=== PATIENT | female | born 1995 | race Caucasian/White ===

== ENCOUNTER 2018-04-02 09:00 | Outpatient (RCR) | payer OTHER, BC, SELFPAY ==
--- NOTE | 2018-04-02 10:42 | BH.COMM_ITS ---
Communication Note - Communication with Client Communication Note: Therapist met with client to build rapport and to complete intake paperwork before group. Therapist also followed up with client after group to see how her first day went and to identify individual goals for the program. Client identified her goals as lessening anxiety, no more panic attacks , and stopping the what if thinking and jumping to conclusions.
--- NOTE | 2018-04-02 13:01 | BH.SGPN ---
Service Group Progress Note - Session Psychotherapy Session #2 Date Open:: 04/02/18 Time Started:: 10:20 Time Stopped:: 11:15 Targeted Problem #:: 1 Type of Group:: Illness Management Goal of Group:: To increase understanding of communication and the various types of communication. Another goal was to increase understanding of impact communication styles can have. Client Response/Progress/Benefit:: Pt passive participant, appeared to listen attentively to others; contributed if elicited by therapist. Pt appeared to connect with the different styles of communication as evidenced by pt nodding head in agreement to others comments. Pt identified she most often is a passive communicator. Pt shared by being passive she doesn't express her emotions which she identified doesn't help her in the terminal carman. Pt seemed to benefit from learning about the different communication styles as well as increasing awareness of how her style of communication could be negatively impacting her. Eye Contact:: Fair Motor Activity:: Appropriate Appearance:: Casual Speech:: Appropriate Mood:: Anxious, Depressed Affect:: Constricted Thoughts:: Linear, Logical, No evidence of hallucinations/delusions noted Staff Interventions:: Therapist facilitated the group discussion about communication and explained the different types of communication. Therapist assisted group members in connecting the communication styles to the way they communicate and impact the communication style has on their relationships. Therapist provided support by using active listening and providing feedback. Psychotherapy Session #3 Date Open:: 04/02/18 Time Started:: 11:25 Time Stopped:: 12:15 Targeted Problem #:: 1 Type of Group:: Functional Skills Development Goal of Group:: To identify important components of communication and practice specific, clear communication. Client Response/Progress/Benefit:: Pt remained quiet during group discussion, did show increased engagement during challenge activity. When processing activity pt identified it was unhelpful to the group when one partner wasn't allowed to ask questions because misinterpretations occurred which led to group not being successful. Pt able to connect that when don't clarify during a conversation things can easily turn out worker negatively because assumptions will often occur. Pt seemed to benefit from pt connecting importance of communicating assertively, specific and clearly to others. Eye Contact:: Fair Motor Activity:: Appropriate Appearance:: Casual Speech:: Appropriate Mood:: Anxious, Depressed Affect:: Constricted Thoughts:: Linear, No evidence of hallucinations/delusions noted Staff Interventions:: Therapist led the discussion about important components of effective communication. Therapist provided each group member with the same three materials and broke the group into pairs. Therapist facilitated a communication activity in which the group members would have to achieve a goal by using effective communication to achieve such goal. Therapist processed the activity with the group.
--- NOTE | 2018-04-02 13:58 | BH.SGPN_ITS ---
Service Group Progress Note - Session Psychotherapy Session #1 Date Open:: 04/02/18 Time Started:: 09:17 Time Stopped:: 10:07 Targeted Problem #:: 1 Type of Group:: Process - 4 participants Goal of Group:: The goal of group was to check-in on client?s mood, stressors and positives, review homework and introduce the topic of the day. Client Response/Progress/Benefit:: Client first day in IOP program and was adjusting to the treatment environment. She did well to remain attentive and engaged while fellow participants processed with the group. This was evidenced by client maintaining eye contact and nodding throughout. Client was willing to briefly share with the group but expressed being nervous about the group setting. Client explained that while in the program she would like to work on developing the skills she can use to manage symptoms of anxiety and prevent panic escalation. CLient benefitted form the support and encouragement of the group environment as well as being reassured that she is taking an important first step in improving overall mental health and wellness by seeking treatment. Client recommended continue IOP treatment to maintain stability and increase amount of healthy coping skills client utilizes to decrease sx of anxiety. Eye Contact:: Good Motor Activity:: Restless Appearance:: Casual Speech:: Appropriate, Soft Mood:: Anxious, Dysthymic Affect:: Constricted Thoughts:: Linear, Logical, No evidence of hallucinations/delusions noted Staff Interventions:: Therapist used open-ended questions to elicit information about client's current stressors and mood state. Therapist was supportive by using active listening and reflection. Therapist utilized a quote related to confidence as an aid in introducing the topic of the day and facilitated discussion of quote.
--- NOTE | 2018-04-02 16:24 | BH.MTP_ITS ---
[facility] Treatment Plan - Patient Information Program Physician:: Garima Encinas Primary Therapist:: Ambar Lara - Psychiatric Diagnoses Psychiatric Diagnoses:: Generalized anxiety disorder; Depressive disorder unspecified. Diagnosis Code(s):: F 41.1 - Estimated LOS Estimated LOS (in weeks):: 6 Problem/Goal #1 - Problem/Goal #1 Stated Goal:: Client will reduce depressive symptoms, self-judging, and suicidal ideation through the Intensive Outpatient Program. Description of Barriers: Client reports few mental health supports outside of her boyfriend and best friend. Client shared her family does not understand mental health and is constantly negative. Client is currently unemployed and reports pressure from her family to get a job which contributes to client's self -judging and low self-esteem. Client is aware that she is a people pleaser and has a hard time setting boundaries. Client shared she also struggles with communicating her mental health needs and reports expecting others to know how to help her without client telling them which has been a barrier in the past. Client reports avoidance behaviors and fear of failure that have also kept client stuck in the past. Functional Impact: At admission, client reports a long-standing history of anxiety since childhood. Client?s symptoms became worse in January associated with academic stress and a suicide on campus. Client endorses depressed mood with negative self-judging, anhedonia, and passive thoughts of suicide. Client also endorses ruminative anxiety about multiple issues including academic performance and about upsetting others. She acknowledges that she is a people pleaser and has a hard time setting boundaries. Client shared she has panic attacks once per week lasting about a half hour in which she has heart palpitations and shortness of breath. Client has some mild obsessive- compulsive traits including counting and perfectionism. Client reports her symptoms are impacting her ability to function at her baseline as client has increased avoidance behaviors, negative thinking, and ruminating that prevents client from working. Client reports belief her symptoms have also impacted her relationships with family and negatively impacted her schooling. Goal Relevant Strengths/Supports: Client is intelligent, kind, and organized. Client identifies herself as a life-long learner which may help client increase awareness of triggers, warning signs, and mental health symptoms. Client appears to be motivated in her treatment and is willing to apply coping skills into her daily life. Client reports being active in local politics and share he loves school. Client identified her boyfriend and her best friend as positive mental health supports. - Objectives Objective #1 Stated Objective: Client will identify at least 2-3 negative self-talk messages used to reinforce negative core beliefs and self-judging and replace thoughts with positive messages. Interventions: Therapist will help client identify distorted, negative beliefs about self and replace with more realistic, affirmative messages. Therapist will utilize CBT to help client increase understanding the development of core beliefs and how to challenge negative thoughts. Therapist will helped client practice more effective internal and external communication to increase confidence. Discharge Criteria: Client will have achieved this goal when can verbalize at least 2 negative self-talk messages and effectively replace those thoughts with affirmative messages. Target Date: 05/14/18 Review Date: 05/02/18 Status: open Objective #2 Stated Objective: Client will identify at least 2 triggers to increased depressive thinking and urge to self-harm, as well as 2 coping skills to use to help avoid self-harm and increase emotional regulation. Interventions: Therapist will help client identify triggers for depressive symptoms and urges to self-harm. Therapist will teach client alternative, healthy coping skills to reduce self-harm and promote emotional regulation. Discharge Criteria: Client will have met this goal when can report better insight into mood changes utilizing healthy coping skills to reduce self-harm and suicidal ideation. Target Date: 05/14/18 Review Date: 05/02/18 Status: open Problem/Goal #2 - Problem/Goal #2 Stated Goal:: Client will reduce duration, intensity, and frequency of panic and decrease ruminative thoughts on a daily basis through Intensive Outpatient Program. Description of Barriers: Client reports few mental health supports outside of her boyfriend and best friend. Client shared her family does not understand mental health and is constantly negative. Client is currently unemployed and reports pressure from her family to get a job which contributes to client's self -judging and low self-esteem. Client is aware that she is a people pleaser and has a hard time setting boundaries. Client shared she also struggles with communicating her mental health needs and reports expecting others to know how to help her without client telling them which has been a barrier in the past. Client reports avoidance behaviors and fear of failure that have also kept client stuck in the past. Functional Impact: At admission, client reports a long-standing history of anxiety since childhood. Client?s symptoms became worse in January associated with academic stress and a suicide on campus. Client endorses depressed mood with negative self-judging, anhedonia, and passive thoughts of suicide. Client also endorses ruminative anxiety about multiple issues including academic performance and about upsetting others. She acknowledges that she is a people pleaser and has a hard time setting boundaries. Client shared she has panic attacks once per week lasting about a half hour in which she has heart palpitations and shortness of breath. Client has some mild obsessive- compulsive traits including counting and perfectionism. Client reports her symptoms are impacting her ability to function at her baseline as client has increased avoidance behaviors, negative thinking, and ruminating that prevents client from working. Client reports belief her symptoms have also impacted her relationships with family and negatively impacted her schooling. Goal Relevant Strengths/Supports: Client is intelligent, kind, and organized. Client identifies herself as a life-long learner which may help client increase awareness of triggers, warning signs, and mental health symptoms. Client appears to be motivated in her treatment and is willing to apply coping skills into her daily life. Client reports being active in local [employer] and share he loves school. Client identified her boyfriend and her best friend as positive mental health supports. - Objectives Objective #1 Stated Objective: Client will identify 2-3 panic triggers and 2 coping skills to use when feeling anxious. Interventions: Therapist will help client process triggers to increased symptoms , and then identify ways to manage these feelings and thoughts. Therapist will help client establish an anxiety ladder of small exposure goals to improve confidence and reduce avoidance behaviors that exacerbate anxiety. Therapist will provide psychoeducation on anxiety to increase client's awareness. Discharge Criteria: Client will have accomplished this goal when can identify 2- 3 triggers and report reduced panic symptoms through use of at least two coping skills. Target Date: 05/14/18 Review Date: 05/02/18 Status: open Objective #2 Stated Objective: Client will identify 2-3 anxiety producing thoughts that tends to ruminate on, and reduce this by increasing self-awareness, communication, and problem solving. Interventions: Therapist will help client identify internal struggles client faces, including anxiety around setting boundaries, unrealistic expectations, other identified stressors. Therapist will encourage client to use self- awareness strategies and assertive communication of needs to set boundaries and improve self-esteem. Therapist will utilize CBT and DBT strategies to help client more effectively challenge and reframe thoughts, while improving distress tolerance. Discharge Criteria: Client will have achieved this objective when able to verbalize anxiety-producing thoughts and identify 2-3 ways to cope with them. Target Date: 05/14/18 Review Date: 05/02/18 Status: open
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
--- NOTE | 2018-04-03 16:09 | BH.SGPN_ITS ---
Service Group Progress Note - Session Psychotherapy Session #2 Date Open:: 04/02/18 Time Started:: 10:20 Time Stopped:: 11:15 Targeted Problem #:: 1 Type of Group:: Illness Management Goal of Group:: To increase understanding of communication and the various types of communication. Another goal was to increase understanding of impact communication styles can have. Client Response/Progress/Benefit:: Pt passive participant, appeared to listen attentively to others; contributed if elicited by therapist. Pt appeared to connect with the different styles of communication as evidenced by pt nodding head in agreement to others comments. Pt identified she most often is a passive communicator. 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 Pt seemed to benefit from learning about the different communication styles as well as increasing awareness of how her style of communication could be negatively impacting her. Eye Contact:: Fair Motor Activity:: Appropriate Appearance:: Casual Speech:: Appropriate Mood:: Anxious, Depressed Affect:: Constricted Thoughts:: Linear, Logical, No evidence of hallucinations/delusions noted Staff Interventions:: Therapist facilitated the group discussion about communication and explained the different types of communication. Therapist assisted group members in connecting the communication styles to the way they communicate and impact the communication style has on their relationships. Therapist provided support by using active listening and providing feedback. Psychotherapy Session #3 Date Open:: 04/02/18 Time Started:: 11:25 Time Stopped:: 12:15 Targeted Problem #:: 1 Type of Group:: Functional Skills Development Goal of Group:: To identify important components of communication and practice specific, clear communication. Client Response/Progress/Benefit:: Pt remained quiet during group discussion, did show increased engagement during challenge activity. When processing activity pt identified it was unhelpful to the group when one partner wasn't allowed to ask questions because misinterpretations occurred which led to group not being successful. Pt able to connect that when don't clarify during a conversation things can easily t rail turner negatively because assumptions will often occur. Pt seemed to benefit from pt connecting importance of communicating assertively, specific and clearly to others. Eye Contact:: Fair Motor Activity:: Appropriate Appearance:: Casual Speech:: Appropriate Mood:: Anxious, Depressed Affect:: Constricted Thoughts:: Linear, No evidence of hallucinations/delusions noted Staff Interventions:: Therapist led the discussion about important components of effective communication. Therapist provided each group member with the same three materials and broke the group into pairs. Therapist facilitated a communication activity in which the group members would have to achieve a goal by using effective communication to achieve such goal. Therapist processed the activity with the group.
--- NOTE | 2018-04-04 11:01 | BH.MDN_ITS ---
Multi-Disciplinary Note - Note 45-min Individual Time Started:: 10:04 Date: 04/04/18 Purpose of session/treatment goals addressed:: The purpose of this session was to build rapport, establish treatment goals, and explore client's current symptoms, stressors, supports, and mental health history. Eye Contact:: Fair Motor Activity:: Restless Speech:: Rambling Mood:: Anxious Affect:: Full Thoughts:: Circular, No evidence of hallucinations/delusions noted Staff Interventions:: Therapist used active listening and open-ended questions to gather information on client's current symptoms, stressors, supports, and mental health history. Therapist gave client a safe environment to verbalize her anxiety and process precipitating factors that have contributed to her current symptoms. Therapist helped client establish treatment goals and identify strengths. Client Response:: Client responded well to session, open to meeting with therapist. Client reported she has been experiencing anxiety for most of her life sharing she has been in therapy one and off since 2nd grade. However, this past semester client's anxiety has worsened due to two suicides on the [facility] campus where client attends school. Client reported having a severe panic attack on Mother's Day this year which client described as I wanted to ... I was sobbing and couldn't breathe. Client reported her boyfriend, school, work , and mother contribute the most to her anxiety. Client shared her symptoms include rapid heartrate, racing thoughts, hopelessness, passive thoughts of , and irritability. Client expressed her symptoms have impacted her grades in school, social life, and prevent her from doing things she enjoys. Client reported a history of self-harming behaviors when experiencing panic attacks such as slapping herself and scratching. Client shared she tried cutting herself in high school, but denies currently engaging in this self-harming behavior. Client reports ability to maintain safety and denies using drugs and alcohol. Client stated her boyfriend and best friend provide the most support for her mental health, but client would like to bring her boyfriend in so he can better understand how to help her. Client identified her treatment goals as reducing anxiety, panic, and racing thoughts. Risks/Concerns:: Client reports passive thoughts of as recent as last night. Client denies SI plan and intent. Client reports looking forward to working on a [employer] which demonstrates future orientation. Client reports ability to maintain safety and is aware of local crisis resources should she feel unable to maintain safety. Progress Toward Goals/Plan:: Limited progress as it is client's first week in IOP. Client reports motivation to improve her functioning and management of anxiety. Client shared anxiety impacts her all areas of her life and prevents client for doing things she enjoys. Client would like to learn how to more effectively cope with panic, negative thoughts, and anxiety. Client to continue IOP to prevent decompensation, reduce anxiety, and promote mood stability. Time Stopped:: 10:55
--- NOTE | 2018-04-05 10:01 | BH.NA ---
Physical Data - Vital Signs Pulse Rate: 66 Respiratory Rate: 14 Blood Pressure: 96/71 - Height/Weight Height: 1.68 m Weight:: 101.151 kg Weight in Pounds: 223.0 lbs Current Medication Compliance - Medication Compliance Do you take your medication as prescribed?: Yes Do you need assistance with taking medication?: No Have you had side effects from medication?: No Nutritional History - Appetite Nutritional Instructions:: If client shows signs of a swallowing problem, weight change of 10 pounds or more in the last month, or is on a diabetic diet, the physician will review and request a dietitian consult, as appropriate. All unintentional weight loss will be referred to the physician for decision on need for dietitian consult. Describe your appetite:: Good Have you noticed a change in your eating habits lately?: No Additional nutritional information:: Rare caffiene ingestion Functional Assessment - Sleep Pattern Describe any problems with sleeping: Lenore endorses difficulty falling asleep most nights associated with rumination. - Activities Motor Activity:: Functional Sensory/Communication Assess - Hearing Problems Do you have any hearing problems?: Adequate - Communication Problems Do you have difficulty understanding what people are saying?: No Do you have trouble putting your thoughts into words or expressing what you want to say?: No Do people ever have trouble understanding what you say?: No What is your primary language?: Kyrgyz Learning Assessment - Education What is your level of education?: Some College - Learning Barriers Learning Barriers:: Ready to learn Medical Problems/History - Neurological Conditions Neurological: Other (See comments) - fibromyalgia - Pain Assessment Do you have acute or chronic pain?: Yes - Female Reproductive Do you think you may be ?: No Number of children:: 0 Have you reached menopause?: No Do you have any history of breast disease?: No Substance Abuse - Substance Abuse Please describe substance abuse in the last 30 days:: Client denies tobacco and illicit substance use. She occassionally drinks alcohol. Mental Status Summary - Mental Status Significant Findings/Observations on Appearance and Mood:: Alert and oriented, cooperative with interview, and makes fair eye contact. Very hyperactive in chair with picking of arms and bouncing of feet/legs. Speech is clear and of regular rate and volume. Moderate anxiety and anhedonia. Mood congruent affect. Logical associations. Fair knowledge and insight. No symptoms of delusions. Denies hallucinations and HI. She does have fleeting SI without plan or intent. Good concentration and attention. Suicide Assessment - Suicidal Ideation Are you currently or have you been suicidal in the past?: Yes Suicidal Intentional Rating Scale (SIRS): Current suicidal thoughts/No plan/Contracts for safety Physician Notification: If Active suicidal thoughts/Will not contract for safety is checked, contact physician and document in the Physician Notification section below. Past Psychiatric History - MH Treatment Hx Past Psychiatric Medications:: fluoxetine Age of first mental health symptoms: 10-years-old/2nd grade Describe (age, circumstance, etc) any past hospitalizations: N/A Fall Risk Assessment - Age Age: Less than 60 - Mental Status Mental Status: Willing & able to ask for assistance when needed - Physical Status Physical Status: No problems - Impairments Impairments: None - Elimination Elimination: Continent AND independent - Gait or Balance Gait or Balance: Walks independently - Hx of Falls History of falls in the past 6 months: No known history - Medications/Substances Psychotropics:: Antidepressants, Anxiolytics (e.g. benzodiazepines) Medications/substances used within the past 24 hours or ordered to administer: 1-2 of the medications/substances listed above - Total Score Total Points:: 1 RN Summary of Impressions - Impressions Recommendations: Include psychiatric and medical issues, treatment planning recommendations, and discharge planning needs. Impressions: Psychiatric Issues: MDD, anxiety, borderline personality d/o? (evidence of cluster B traits) Impression: General Medical Conditions: fibromyalgia - Level of Care How do the client's current symptoms and functional deficits support need for this level of care?: Lenore endorses negative mental health symptoms that are adversely impacting her life since January of 2018. She has been engaging in self-harm by way of cutting, having intermittent fleeting SI, and frequent panic attacks over the same period. 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 She feels intense pressure from her family to perform well in school and has had some disagreements about what she should be doing this summer break (working vs. volunteering for political campaign). [facility] will help Lenore engage socially and provide opportunities to learn and implement skills to decrease her anxiety.
--- NOTE | 2018-04-05 13:13 | PCM.HP.BLA ---
History and Physical Identifying information Patient is a 22 year old single female who presents to the [facility] with chief complaint of anxiety. History is been obtained per interview with patient discussion with staff review of chart. Case discussed with treatment team. History of present illness Patient is a 22-year-old single female referred by primary care physician Dr. Ortega to the [facility] due to recent exacerbation of anxiety and depression. Patient reports a long-standing history of anxiety since childhood. Her symptoms became worse in January associated with academic stress of semester midterms. 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 She endorses depressed mood with negative self judging, anhedonia, and passive thoughts of suicide. She denies suicide plan or intent. She has thoughts however to end the suffering occurring twice per week since January. She denies access to firearms or stock piles of medications. She denies homicidal thoughts or symptoms consistent with psychosis. She denies symptoms consistent with jeanna. She endorses ruminative anxiety about multiple issues including academic performance and about upsetting others. She acknowledges that she is a people pleaser. She has panic attacks once per week lasting about a half hour in which she has heart palpitations and shortness of breath. They are triggered by rumination and relieved by talking to someone. She has some mild obsessive-compulsive traits including counting and perfectionism. Her appetite is been normal. She denies history of eating disorder. She is sleeping from 11 PM to 8 AM. She denies history of abuse or symptoms consistent with PTSD. Past psychiatric history Patient received counseling for anxiety while in elementary school. She denies previous psychiatric hospitalizations or suicide attempts. Last year her primary care physician Dr. Ortega prescribed Prozac which she took for 6 months and then ultimately changed to Cymbalta in October 2017. She feels the medication is been helpful. She does not currently have a psychiatrist or counselor. Substance use history Patient denies smoking cigarettes he consumes 3 alcoholic drinks once per month. He denies use of illicit drugs or ingestion of caffeine. Past medical history Significant for fibromyalgia Vitamin D deficiency Denies history of seizure or head injury. Review of systems No fevers chills nausea vomiting chest pain dyspnea. All other systems reviewed and negative except as above. Allergies-no known medical allergies Current medications Cymbalta 30 mg p.o. twice daily (increased to twice daily last week from 30 mg daily) Meloxicam Vitamin D3 Family medical psychiatric history Mother-anxiety depression Maternal grandmother-anxiety depression Paternal grandfather-anxiety Maternal uncle-anxiety Maternal [facility] in the 50s Father-ADHD Developmental social history Born and raised in [place]. Only child. Father left mother prior to patient's . 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 No abuse. Describes childhood as good. 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 Resided in the dorms last year. Planning to live in an apartment next year. On summer break. Staying with mother and Jenna and sometimes with boyfriend in [place]. Boyfriend (Ryan) since May 2017. Ryan graduated [employer] last week in [employer] science and is planning to teach. Mental status exam Vital signs reviewed per nursing database and discussed with nursing. Alert and oriented. No acute distress. Ambulatory with normal gait and station. Casually dressed and groomed. Appropriate hygiene. Cooperative with interview. Good eye contact. No psychomotor agitation or retardation. Mood depressed. Affect congruent. Speech is clear and of regular rate and volume. Language fluent. Thought process organized. Associations logical. Thought content significant for ruminative anxiety and themes of depression. Passive suicidal ideation. No suicide plan or intent. Feels able to maintain safety. No homicidal ideation related to her detected. No evidence of psychosis related to her detected. Immediate recent and remote memory grossly intact. Attention and concentration are fair. Estimated intelligence fund of knowledge average. Judgment and insight are limited to fair. Labs and testing lab work will be requested from primary care physician. Further lab work will be obtained as needed Diagnosis Generalized anxiety disorder F 41.1 Depressive disorder unspecified. Vitamin D deficiency Fibromyalgia Plan Admit to IOP as the structured setting is necessary to prevent decompensation. Risks benefits alternatives of medications discussed with patient. Patient acknowledges understanding. Continue to Cymbalta. Consolidate dose to 60 mg p.o. every morning. Dispense #30 with 1 refill. Continue vitamin D supplement. Establish with outpatient psychiatric providers for when IOP complete. Patient acknowledges understanding and is in agreement with plan. Feels able to maintain safety. Agrees to seek help or emergency care if feeling unsafe to self or others.
--- NOTE | 2018-04-05 13:29 | HP.PCM_ITS ---
History and Physical Identifying information Patient is a 22 year old single female who presents to the [facility] with chief complaint of anxiety. History is been obtained per interview with patient discussion with staff review of chart. Case discussed with treatment team. History of present illness Patient is a 22-year-old single female referred by primary care physician Dr. Ortega to the [facility] due to recent exacerbation of anxiety and depression. Patient reports a long-standing history of anxiety since childhood. Her symptoms became worse in January associated with academic stress of semester midterms. 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 She endorses depressed mood with negative self judging, anhedonia, and passive thoughts of suicide. She denies suicide plan or intent. She has thoughts however to end the suffering occurring twice per week since January. She denies access to firearms or stock piles of medications. She denies homicidal thoughts or symptoms consistent with psychosis. She denies symptoms consistent with jeanna. She endorses ruminative anxiety about multiple issues including academic performance and about upsetting others. She acknowledges that she is a people pleaser. She has panic attacks once per week lasting about a half hour in which she has heart palpitations and shortness of breath. They are triggered by rumination and relieved by talking to someone. She has some mild obsessive-compulsive traits including counting and perfectionism. Her appetite is been normal. She denies history of eating disorder. She is sleeping from 11 PM to 8 AM. She denies history of abuse or symptoms consistent with PTSD. Past psychiatric history Patient received counseling for anxiety while in elementary school. She denies previous psychiatric hospitalizations or suicide attempts. Last year her primary care physician Dr. Ortega prescribed Prozac which she took for 6 months and then ultimately changed to Cymbalta in October 2017. She feels the medication is been helpful. She does not currently have a psychiatrist or counselor. Substance use history Patient denies smoking cigarettes he consumes 3 alcoholic drinks once per month. He denies use of illicit drugs or ingestion of caffeine. Past medical history Significant for fibromyalgia Vitamin D deficiency Denies history of seizure or head injury. Review of systems No fevers chills nausea vomiting chest pain dyspnea. All other systems reviewed and negative except as above. Allergies-no known medical allergies Current medications Cymbalta 30 mg p.o. twice daily (increased to twice daily last week from 30 mg daily) Meloxicam Vitamin D3 Family medical psychiatric history Mother-anxiety depression Maternal grandmother-anxiety depression Paternal grandfather-anxiety Maternal uncle-anxiety Maternal [facility] in the 50s Father-ADHD Developmental social history Born and raised in [place]. Only child. Father left mother prior to patient' s . 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 No abuse. Describes childhood as good. 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 Resided in the dorms last year. Planning to live in an apartment next year. On summer break. Staying with mother and Jenna and sometimes with boyfriend in [place]. Boyfriend (Ryan) since May 2017. Ryan graduated [employer] last week in [email or web address] science and is planning to teach. Mental status exam Vital signs reviewed per nursing database and discussed with nursing. Alert and oriented. No acute distress. Ambulatory with normal gait and station. Casually dressed and groomed. Appropriate hygiene. Cooperative with interview. Good eye contact. No psychomotor agitation or retardation. Mood depressed. Affect congruent. Speech is clear and of regular rate and volume. Language fluent. Thought process organized. Associations logical. Thought content significant for ruminative anxiety and themes of depression. Passive suicidal ideation. No suicide plan or intent. Feels able to maintain safety. No homicidal ideation related to her detected. No evidence of psychosis related to her detected. Immediate recent and remote memory grossly intact. Attention and concentration are fair. Estimated intelligence fund of knowledge average. Judgment and insight are limited to fair. Labs and testing lab work will be requested from primary care physician. Further lab work will be obtained as needed Diagnosis Generalized anxiety disorder F 41.1 Depressive disorder unspecified. Vitamin D deficiency Fibromyalgia Plan Admit to IOP as the structured setting is necessary to prevent decompensation. Risks benefits alternatives of medications discussed with patient. Patient acknowledges understanding. Continue to Cymbalta. Consolidate dose to 60 mg p.o. every morning. Dispense #30 with 1 refill. Continue vitamin D supplement. Establish with outpatient psychiatric providers for when IOP complete. Patient acknowledges understanding and is in agreement with plan. Feels able to maintain safety. Agrees to seek help or emergency care if feeling unsafe to self or others.
--- NOTE | 2018-04-05 13:30 | BH.DR.ITP ---
Initial Treatment Plan - Patient Information Visit Information: ADMISSION DATE: EXPECTED LOS: 4-6 weeks Diagnoses:: Analyzed anxiety disorder - Problems/Symptoms Problem #1:: depression Symptom:: Sad mood, negative self judging, suicidal ideation Problem #2:: Anxiety Symptom:: Rumination, panic
--- NOTE | 2018-04-05 15:34 | BH.NA_ITS ---
Physical Data - Vital Signs Pulse Rate: 66 Respiratory Rate: 14 Blood Pressure: 96/71 - Height/Weight Height: 1.68 m Weight:: 101.151 kg Weight in Pounds: 223.0 lbs Current Medication Compliance - Medication Compliance Do you take your medication as prescribed?: Yes Do you need assistance with taking medication?: No Have you had side effects from medication?: No Nutritional History - Appetite Nutritional Instructions:: If client shows signs of a swallowing problem, weight change of 10 pounds or more in the last month, or is on a diabetic diet, the physician will review and request a dietitian consult, as appropriate. All unintentional weight loss will be referred to the physician for decision on need for dietitian consult. Describe your appetite:: Good Have you noticed a change in your eating habits lately?: No Additional nutritional information:: Rare caffiene ingestion Functional Assessment - Sleep Pattern Describe any problems with sleeping: Lenore endorses difficulty falling asleep most nights associated with rumination. - Activities Motor Activity:: Functional Sensory/Communication Assess - Hearing Problems Do you have any hearing problems?: Adequate - Communication Problems Do you have difficulty understanding what people are saying?: No Do you have trouble putting your thoughts into words or expressing what you want to say?: No Do people ever have trouble understanding what you say?: No What is your primary language?: Irish Learning Assessment - Education What is your level of education?: Some College - Learning Barriers Learning Barriers:: Ready to learn Medical Problems/History - Neurological Conditions Neurological: Other (See comments) - fibromyalgia - Pain Assessment Do you have acute or chronic pain?: Yes - Female Reproductive Do you think you may be ?: No Number of children:: 0 Have you reached menopause?: No Do you have any history of breast disease?: No Substance Abuse - Substance Abuse Please describe substance abuse in the last 30 days:: Client denies tobacco and illicit substance use. She occassionally drinks alcohol. Mental Status Summary - Mental Status Significant Findings/Observations on Appearance and Mood:: Alert and oriented, cooperative with interview, and makes fair eye contact. Very hyperactive in chair with picking of arms and bouncing of feet/legs. Speech is clear and of regular rate and volume. Moderate anxiety and anhedonia. Mood congruent affect. Logical associations. Fair knowledge and insight. No symptoms of delusions. Denies hallucinations and HI. She does have fleeting SI without plan or intent. Good concentration and attention. Suicide Assessment - Suicidal Ideation Are you currently or have you been suicidal in the past?: Yes Suicidal Intentional Rating Scale (SIRS): Current suicidal thoughts/No plan/ Contracts for safety Physician Notification: If Active suicidal thoughts/Will not contract for safety is checked, contact physician and document in the Physician Notification section below. Past Psychiatric History - MH Treatment Hx Past Psychiatric Medications:: fluoxetine Age of first mental health symptoms: 10-years-old/2nd grade Describe (age, circumstance, etc) any past hospitalizations: N/A Fall Risk Assessment - Age Age: Less than 60 - Mental Status Mental Status: Willing & able to ask for assistance when needed - Physical Status Physical Status: No problems - Impairments Impairments: None - Elimination Elimination: Continent AND independent - Gait or Balance Gait or Balance: Walks independently - Hx of Falls History of falls in the past 6 months: No known history - Medications/Substances Psychotropics:: Antidepressants, Anxiolytics (e.g. benzodiazepines) Medications/substances used within the past 24 hours or ordered to administer: 1 -2 of the medications/substances listed above - Total Score Total Points:: 1 RN Summary of Impressions - Impressions Recommendations: Include psychiatric and medical issues, treatment planning recommendations, and discharge planning needs. Impressions: Psychiatric Issues: MDD, anxiety, borderline personality d/o? ( evidence of cluster B traits) Impression: General Medical Conditions: fibromyalgia - Level of Care How do the client's current symptoms and functional deficits support need for this level of care?: Lenore endorses negative mental health symptoms that are adversely impacting her life since January of 2018. She has been engaging in self -harm by way of cutting, having intermittent fleeting SI, and frequent panic attacks over the same period. 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 She feels intense pressure from her family to perform well in school and has had some disagreements about what she should be doing this summer break (working vs. volunteering for political campaign). [facility] will help Lenore engage socially and provide opportunities to learn and implement skills to decrease her anxiety.
--- NOTE | 2018-04-10 14:33 | BH.SGPN ---
Service Group Progress Note - Session Psychotherapy Session #2 Date Open:: 04/10/18 - 10 group members Time Started:: 10:20 Time Stopped:: 11:15 Targeted Problem #:: 1 Type of Group:: Illness Management Goal of Group:: To increase understanding of resilience and identify the factors that contribute to building resilience. Client Response/Progress/Benefit:: Client responded well to session, providing good insight to discusion. Client connected with the quote stating, it's best to be adaptable so you can grow and change. Client reported resilience is one's ability to adapt and grow from adversity. Client reported belief one can learn to be resilient, even though it can be more challenging for some based on life experience. Client helped the group identify factors that build resilience such as self-awareness and living to learn. Client appeared to benefit from increasing awareness of resilience and how it impacts mental health. Progress noted per client's report of generalizing coping skills, but can continue to benefit from reducing anxiety and panic. Eye Contact:: Fair Motor Activity:: Appropriate Appearance:: Neat Speech:: Appropriate Mood:: Anxious Affect:: Flat Thoughts:: Linear, Logical, No evidence of hallucinations/delusions noted Staff Interventions:: Therapist led group in an activity that would induce a chaotic environment and used the activity as a tool in discussing the various stressors people are faced with each day. Therapist facilitated group discussion about resilience and explained the factors of building resilience. Therapist led discussion about factors that contribute to resilience. Therapist provided support by using active listening and providing feedback. Psychotherapy Session #3 Date Open:: 04/10/18 - 9 group members Time Started:: 11:25 Time Stopped:: 12:15 Targeted Problem #:: 1 Type of Group:: Functional Skills Development Goal of Group:: To rehearse resilient factors and identify ways to maintain resilience despite hardships and stressors. Client Response/Progress/Benefit:: Client responded well to session, active participate. Client identified personal resilience traits such as life-long learner, being open-minded, optimistic, and adaptable. Client shared writing these down will help client remember how she can maintain resilience even when challenges and setbacks occur. Client appeared to benefit from increasing awareness of her personal resilience traits. Progress noted in client's increased insight to warning signs, but can continue to improve with reducing avoidance and improving communication. Eye Contact:: Good Motor Activity:: Appropriate Appearance:: Neat Speech:: Appropriate Mood:: Anxious Affect:: Flat Thoughts:: Linear, Logical, No evidence of hallucinations/delusions noted Staff Interventions:: Therapist led group in an activity in which group members were challenged to stay resilient despite various stressors and hardships added to activity. Therapist provided each group member with a stress ball and used stress ball as a tool to discuss factors of resilient personality. Therapist provided group members with a handout about the building blocks of resilience. Therapist provided support by using reflective listening.
--- NOTE | 2018-04-10 15:42 | BH.SGPN ---
Service Group Progress Note - Session Psychotherapy Session #1 Date Open:: 04/10/18 Time Started:: 09:10 Time Stopped:: 10:10 Targeted Problem #:: 1 Type of Group:: Process - 10 group members Goal of Group:: The goal of today's group was to check-in with client's mood, stressors, and positives, review homework and introduce topic for the day. Client Response/Progress/Benefit:: Client reported yesterday was not good. client elaborated that she went to buy a mattress with her mom at a [employer] store and felt like her mom was being unsupportive. client shared the shopping experience led to continued arguing and fighting with her mom, which client reported increased her anxiety. client reported she just left her parents house and went to her boyfriends because she couldn't deal with the conflict. Client reported she wants to go to her house today to swim, but is anxious because doesn't want to see her mom and get into another disagreement. Client recognizes when there is conflict her first response is to avoid. Client reproted she has difficult time dealing with a conflict becuase becomes too anxious for fear of what might happen. Client seemed to benefit from expressing thoughts and feelings. Client to continue IOP level of care to prevent decompensation and stablize moods. Eye Contact:: Fair Motor Activity:: Restless Appearance:: Casual Speech:: Appropriate Mood:: Anxious, Irritable, Depressed Affect:: Constricted Thoughts:: Linear, No evidence of hallucinations/delusions noted Staff Interventions:: Therapist used open-ended questions to elicit information about client's current stressors and mood state. Therapist was supportive by using active listening and reflection.
--- NOTE | 2018-04-11 10:39 | BH.SGPN ---
Service Group Progress Note - Session Psychotherapy Session #1 Date Open:: 18 - 6 group members Time Started:: 09:05 Time Stopped:: 10:20 Targeted Problem #:: 1 Type of Group:: Process Goal of Group:: The goal of today's group was to check-in with client's mood, stressors, and positives, and introduce topic for the day. Client Response/Progress/Benefit:: Client responded well to session, participating when prompted and receptive to peers comments. Client reports feeling anxious today as she feels overwhelmed with all the things she must do as well as her family pressuring her to get a job. Client shared I know I can't have a job until I get my mind right as currently client's anxiety impacts her performance. The group provided supportive statements to client which appeared to be a benefit to client. Client stated she has been trying to challenge her anxious thoughts, but struggles with rumination and personalization. Client reported her boyfriend became upset this morning when he was late for a training and took it out on client. Client shared although it is still weighing on her she has been reminding herself it wasn't my fault. Client appeared to benefit from challenging negative thoughts in group. Progress noted as client has been implementing healthy coping skills, but can continue to benefit from utilizing stress management techniques. Eye Contact:: Good Motor Activity:: Restless - AEB shaking leg Appearance:: Casual Speech:: Appropriate, Other - monotone Mood:: Anxious Affect:: Flat Thoughts:: Linear, Logical, No evidence of hallucinations/delusions noted Staff Interventions:: Therapist used open-ended questions to elicit information about client's current stressors and mood state. Therapist was supportive by using active listening and reflection.
--- NOTE | 2018-04-11 14:10 | BH.MDN ---
Multi-Disciplinary Note - Note 45-min Individual Time Started:: 12:22 Date: 04/11/18 Purpose of session/treatment goals addressed:: The purpose of this session was to address client's current stressors, relationships, and symptoms. Another goal was to process emotions, practice communication, and challenge negative thoughts. Eye Contact:: Fair Motor Activity:: Restless Appearance:: Casual Speech:: Appropriate, Other - monotone Mood:: Anxious Affect:: Flat - became tearful while talking about family. Thoughts:: Linear, No evidence of hallucinations/delusions noted Staff Interventions:: Therapist used open-ended questions to explore client's current stressors, relationship concerns, and symptoms. Therapist used motivational interviewing techniques to help client gain insight to how lack of communication has impacted client's mental health. Therapist provided psychoeducation on the connection between thoughts, emotions, and behaviors. Therapist provided client a safe place to practice communicating her emotions and thoughts regarding negativity in her life. Therapist offered the potential for family sessions and provided client homework for identifying and challenging negative thoughts and recognizing positive and negative beliefs of self. Client Response:: Client responded well to session, became tearful while processing current stressors. Client reported she wants to continue to work on challenging negative thoughts, but currently is most concerned with her family. Client shared there's just so much negativity and pressure which impacts client's view of herself and exacerbates anxiety and depression. Client reported since she was a child, client was told she was overweight, not smart enough, etc. Client also shared her family is pressuring her to get a job, but client does not feel like she is mentally ready for that. Client stated she has not said anything for fear that she will hurt someone's feelings. With therapist elicitation, client reflected that having family mad at client would be better than client feeling down about herself and depressed. Client shared she tends to put her emotions on the backburner. Client and therapist processed what client would like to say and client shared I want to tell them they are making me worse and they are mean. Client was receptive to the idea of bringing her boyfriend in for a session so he can learn how to better help client and be a support to client when dealing with client's family. Client and therapist discussed the various areas client wants to work on to improve her situation and mental health such as reframing core beliefs, gaining confidence, improving communication and boundaries, focusing on what is in client's control, and challenging negative thoughts. Client and therapist discussed the maintenance cycle for anxiety and how thoughts, emotions, and behaviors are all connected. Client shared anxiety has kept client from doing things and she is trying to challenge her thoughts. Client receptive to homework given by therapist. Risks/Concerns:: Client denies suicidal ideation, plan, and intent as of 04/11/18. Client reports numerous protective factors such as her love of learning, boyfriend, and the campaign she is working on. Progress Toward Goals/Plan:: Client demonstrating some progress towards treatment goals as shown by her report of increased awareness of cognitive distortions and implementing thought challenging. However, client reports ongoing challenges with communication, core beliefs, and anxiety. Client to continue IOP to promote mood stability and prevent decompensation. Client to follow up with her boyfriend about having a potential couples session so client can verbalize her mental health needs. Time Stopped:: 13:06
--- NOTE | 2018-04-11 14:42 | BH.MDN_ITS ---
Multi-Disciplinary Note - Note 45-min Individual Time Started:: 12:22 Date: 04/11/18 Purpose of session/treatment goals addressed:: The purpose of this session was to address client's current stressors, relationships, and symptoms. Another goal was to process emotions, practice communication, and challenge negative thoughts. Eye Contact:: Fair Motor Activity:: Restless Appearance:: Casual Speech:: Appropriate, Other - monotone Mood:: Anxious Affect:: Flat - became tearful while talking about family. Thoughts:: Linear, No evidence of hallucinations/delusions noted Staff Interventions:: Therapist used open-ended questions to explore client's current stressors, relationship concerns, and symptoms. Therapist used motivational interviewing techniques to help client gain insight to how lack of communication has impacted client's mental health. Therapist provided psychoeducation on the connection between thoughts, emotions, and behaviors. Therapist provided client a safe place to practice communicating her emotions and thoughts regarding negativity in her life. Therapist offered the potential for family sessions and provided client homework for identifying and challenging negative thoughts and recognizing positive and negative beliefs of self. Client Response:: Client responded well to session, became tearful while processing current stressors. Client reported she wants to continue to work on challenging negative thoughts, but currently is most concerned with her family. Client shared there's just so much negativity and pressure which impacts client's view of herself and exacerbates anxiety and depression. Client reported since she was a child, client was told she was overweight, not smart enough, etc. Client also shared her family is pressuring her to get a job, but client does not feel like she is mentally ready for that. Client stated she has not said anything for fear that she will hurt someone's feelings. With therapist elicitation, client reflected that having family mad at client would be better than client feeling down about herself and depressed. Client shared she tends to put her emotions on the backburner. Client and therapist processed what client would like to say and client shared I want to tell them they are making me worse and they are mean. Client was receptive to the idea of bringing her boyfriend in for a session so he can learn how to better help client and be a support to client when dealing with client's family. Client and therapist discussed the various areas client wants to work on to improve her situation and mental health such as reframing core beliefs, gaining confidence, improving communication and boundaries, focusing on what is in client's control , and challenging negative thoughts. Client and therapist discussed the maintenance cycle for anxiety and how thoughts, emotions, and behaviors are all connected. Client shared anxiety has kept client from doing things and she is trying to challenge her thoughts. Client receptive to homework given by therapist. Risks/Concerns:: Client denies suicidal ideation, plan, and intent as of . Client reports numerous protective factors such as her love of learning, boyfriend, and the campaign she is working on. Progress Toward Goals/Plan:: Client demonstrating some progress towards treatment goals as shown by her report of increased awareness of cognitive distortions and implementing thought challenging. However, client reports ongoing challenges with communication, core beliefs, and anxiety. Client to continue IOP to promote mood stability and prevent decompensation. Client to follow up with her boyfriend about having a potential couple?s session so client can verbalize her mental health needs. Time Stopped:: 13:06
--- NOTE | 2018-04-11 16:23 | BH.SGPN_ITS ---
Service Group Progress Note - Session Psychotherapy Session #2 Date Open:: 04/11/18 Time Started:: 10:24 Time Stopped:: 11:14 Targeted Problem #:: 1 Type of Group:: Illness Management - 7 participants Goal of Group:: To increase understanding of fear and explore the negative impact fear of failure can have on mental health and decision making. Client Response/Progress/Benefit:: Client appeared to repspond positively to session and was actively engaged in the discussion throughout. SHe provided input to the conversation regarding failure and how perspective and fear impacts one's ability to succeed. Client disclosed that in the past her view of failure negatively impacted her self-esteem and led her to believe that one bad grade made her a bad student. She worked with the group during the first portion of the activity and provided encouragement and ideas to assist the group in overcoming potential failures in order to make progress towards the larger goal. Client benefited from begining to challenge her own perspective regarding failure and ways to begin looking at failure as a learning opportunity. CLient displayed progress in her ability to open up to the group and process ways the topic relates to her personally. She is recommended continued IOP to increase her ability to challenge distorted thinking patterns and begin to improve overall self-esteem and confidence levels. Eye Contact:: Good Motor Activity:: Appropriate Appearance:: Casual Speech:: Appropriate Mood:: Anxious, Dysthymic Affect:: Constricted Thoughts:: Linear, Logical, No evidence of hallucinations/delusions noted Staff Interventions:: Therapist facilitated discussion about fear and impact fear of failure can have. Therapist led group in an experiential activity in which client?s would fail numerous times throughout, but were given the opportunity to try again. Therapist led the processing of the activity and assisted clients with connecting how fear of failure impacted their decision making during the activity. Psychotherapy Session #3 Date Open:: 04/11/18 Time Started:: 11:21 Time Stopped:: 12:17 Targeted Problem #:: 1 Type of Group:: Functional Skills Development - 7 participants Goal of Group:: To identify the impact fear of failure has had on the group members lives and identify strategies to overcome fear of failure. Client Response/Progress/Benefit:: Client again did well to remain engaged and was an active participant throiughout. She was able to work with fellow participants on completing the remainder of the previous groups activity in which they were forced to face potential failure. CLient benefited from processing ways what worked for the activity, such as communication and positive self talk, may also help in her own personal life. Client discussed wanting to beable to beginveiwing failure as a way to improve upon herself and only a temporary setback. She is displaying progress in overall comfort levels in group and ability to internalize skills as client refered to ways the topic related to other previous group topics. She is recommended continued IOP to increase use of healthy skills and futher improve upon client self talk statements. Eye Contact:: Good Motor Activity:: Appropriate Appearance:: Casual Speech:: Appropriate Mood:: Anxious, Dysthymic Affect:: Congruent Thoughts:: Linear, Logical, No evidence of hallucinations/delusions noted Staff Interventions:: Therapist provided each group member with a worksheet to complete that asked questions about their experiences with fear of failure. Therapist led the processing of the worksheet, helping client?s connect how fear of failure has impacted them. Therapist provided support by using active listening and providing feedback.
[2018-06-07 15:00] VITALS: BP 96/71; PULSE 66; RESP 14
== END 2018-04-11 23:59 ==
LOC: BHIOP 09:00
PROVIDERS: Family Provider Student in an Organized Health Care Education/Training Program; PCP Student in an Organized Health Care Education/Training Program; Visit Provider Psychiatry & Neurology Psychiatry
DX: F41.1 Generalized anxiety disorder (principal); F32.9 Major depressive disorder, single episode, unspecified; E55.9 Vitamin D deficiency, unspecified; M79.7 Fibromyalgia; Z79.899 Other long term (current) drug therapy
CPT/HCPCS: H0035; 90834; 90853

== ENCOUNTER 2018-04-12 09:00 | Outpatient (RCR) | payer BC, OTHER, SELFPAY ==
[2018-04-12 01:17] VITALS: BP 96/71; PULSE 66; RESP 14
--- NOTE | 2018-04-12 14:03 | BH.SGPN_ITS ---
Service Group Progress Note - Session Psychotherapy Session #2 Date Open:: 04/12/18 - 8 group members Time Started:: 10:10 Time Stopped:: 11:00 Targeted Problem #:: 1 Type of Group:: Illness Management Goal of Group:: To increase understanding of what stress is, identify current life stressors, and connect impact stressors have on mental health. Client Response/Progress/Benefit:: Client responded well to session, active participant. Client seemed to connect with the quote, sharing you can get negative thoughts that take over. Client shared stress impacts all around mental wellness including emotional, behavioral, physical, and cognitive functioning. Client shared her stress jar is currently full with family issues , boyfriend, pressure from supports, and school. Client stated when her jar overflows client becomes overwhelms, avoids, and at times has self-harmed. Client appeared to benefit from increasing awareness of the ways stress impacts the mental health. Progress noted in client's increased ability to thought challenge, but can continue to benefit from emotional regulation. Eye Contact:: Fair Motor Activity:: Appropriate Appearance:: Disheveled Speech:: Appropriate Mood:: Anxious Affect:: Constricted Thoughts:: Linear, Logical, No evidence of hallucinations/delusions noted Staff Interventions:: Therapist facilitated discussion about stress. Therapist facilitated an activity in which group members were asked to identify various stressors they have in their life currently. Therapist instructed group members to indicate if certain stressors were larger than others. Therapist led processing of each member?s stress jar and helped them connect impact the stress has on their mental health. Psychotherapy Session #3 Date Open:: 04/12/18 - 7 group members Time Started:: 11:10 Time Stopped:: 12:00 Targeted Problem #:: 1 Type of Group:: Functional Skills Development Goal of Group:: To identify what stressors clients have control over and what stressors have no control over. Another goal was to increase repertoire of healthy strategies to help manage stress. Client Response/Progress/Benefit:: Client responded well to session, engaged throughout. Client reported the activity put into perspective the importance of focusing on one stressor at a time and starting small. Client stated some of her current stressors are out of her control, but client can control how she reacts and manages her emotions. Client helped the group identify strategies to reduce stress such as focusing on stressors in one's control, challenging negative thoughts, and having awareness. Client appeared to benefit from gaining strategies to reduce stress. Client to continue IOP to prevent decompensation and reduce anxiety. Eye Contact:: Fair Motor Activity:: Appropriate Appearance:: Disheveled Speech:: Appropriate Mood:: Anxious Affect:: Constricted Thoughts:: Linear, Logical, No evidence of hallucinations/delusions noted Staff Interventions:: Therapist facilitated discussion about control versus no control and helped group members connect the concept to stressors. Therapist led discussion about importance of putting forth more energy on those stressors they can control. Therapist led group activity that provided participants opportunity to utilize stress management strategies in the moment. Therapist facilitated brainstorming of strategies to help manage stress level. Therapist provided support by using active listening and providing feedback.
--- NOTE | 2018-04-17 10:48 | BH.SGPN ---
Service Group Progress Note - Session Psychotherapy Session #1 Date Open:: 04/17/18 Time Started:: 09:10 Time Stopped:: 10:05 Type of Group:: Process - 7 group members Goal of Group:: The goal of today's group was to check-in with client's mood, stressors, and positives, and review homework. Client Response/Progress/Benefit:: Active participant in group discussion. Shared with the group some overwhelming emotions and psychosocial stressors in the last few days. Reports increase in anxiety and depression as a result of these stressors. Negative thinking and catastrophizing on numerous occasions, however was able to reframe thoughts and utilize support and coping skills to avoid panic attacks and suicidal thoughts. Group praised pt for utilizing skills to manage her emotions and prevent further distress. Limited progress noted. Continues to report depression and anxiety on daily basis which are affecting her functioning however was able to manage emotions and negative thinking before it led to panic attacks or suicidal ideations. Will continue in IOP to maintain safety, improve functioning, stabilize mood, and prevent further decompensation. Eye Contact:: Good Motor Activity:: Appropriate Appearance:: Disheveled Speech:: Appropriate Mood:: Irritable, Depressed Affect:: Flat Thoughts:: Linear, Logical, No evidence of hallucinations/delusions noted Staff Interventions:: Therapist used open-ended questions to elicit information about client's current stressors and mood state. Therapist was supportive by using active listening and reflection
--- NOTE | 2018-04-17 16:09 | BH.MDN ---
Multi-Disciplinary Note - Note 45-min Individual Time Started:: 12:36 Date: 04/17/18 Purpose of session/treatment goals addressed:: The purpose of this session was to address client's current symptoms, stressors, and barriers. Another goal was to establish anxiety ladder goals and identify solutions for overcoming barriers. Other topics included: challenging negative thoughts, reaching out to supports and setting boundaries. Eye Contact:: Fair Motor Activity:: Restless - AEB shaking leg Appearance:: Casual Speech:: Appropriate Mood:: Anxious, Irritable Affect:: Congruent Thoughts:: Linear, Logical, No evidence of hallucinations/delusions noted Staff Interventions:: Therapist used open-ended questions to explore client's current stressors, symptoms, and barriers. Therapist used motivational interviewing techniques to help client challenge ambivalence to positive change. Therapist assisted client in challenging negative thoughts and identifying benefits to reaching out to supports. Therapist used an anxiety ladder to help client identify goals that client wants to accomplish, but anxiety is keeping client from accomplishing. Therapist helped client rate the goals based on the level of anxiety they produce and develop a plan to slowly accomplish these goals. Therapist provided client a safe place to verbalize her emotions and frustrations with her current situation and support. Therapist and client discussed boundaries and how to more effectively communicate triggers. Client Response:: Client responded well to session, active participant. Client reported I have my good days and bad days, but overall client stated she is recognizing she feels better. Client shared there was an incident with her younger brothers this week that lead to client catastrophizing, but client was able to utilize her coping skills and prevent a panic attack. Client shared there is still family conflict regarding this which client is avoiding. When asked about the consequences of avoidance client recognized it will just keep building and client stated she knows she cannot avoid forever. Client reported she spoke with her mom and is hopeful that will help resolve the situation. Client shared she has been doing better with thought challenging, but continues to struggle with communication, avoidance, and setting boundaries with family. Client expressed she feels like I'm always being shot down and around negativity as client stated her family has different expectations for employment and schooling than client does. Client stated this makes her feel anxious, angry, and lonely. Client reported her aunt and uncle would be supportive to her and help client process the difficult life decisions she is facing, but client has not reached out to them because client reports belief I don't want to be a burden. With therapist elicitation, client able to challenge this negative thought and established this as a goal for her anxiety ladder. Client's ladder also consisted of setting boundaries with her mom, which was the most anxiety producing, finishing an application, and making a pros and cons list for training a service dog. Client reported belief she could do at least three of these by Sunday. Client is to start with the least anxiety producing task first and work up from there. Risks/Concerns:: Client denies suicidal ideation, plan, and intent as of 04/17/18. Client reports plans to do volunteer work and go to the [employer] which demonstrates future orientation. Progress Toward Goals/Plan:: Client demonstrating progress towards treatment goals as shown by her report of reduced panic attacks and use of thought challenging to reframe negative thoughts. Client continues to report ongoing issues with avoidance, family conflict, and negative thoughts of self. Client to continue IOP to prevent decompensation and promote emotional regulation. Client to work towards anxiety ladder goals and improving communication. Time Stopped:: 13:20
--- NOTE | 2018-04-17 17:01 | BH.SGPN ---
Service Group Progress Note - Session Psychotherapy Session #2 Date Open:: 04/17/18 group members Time Started:: 10:17 Time Stopped:: 11:12 Targeted Problem #:: 1 Type of Group:: Illness Management Goal of Group:: To identify within self what is keeping client trapped from achieving better quality of life. Client Response/Progress/Benefit:: Client responded well to session, participating in discussion. Client connected with the quote sharing we can make things worse by how we respond. Client stated anxiety, depression, and negative people have kept client feeling stuck. Client able to connect how one's negative thoughts can make her feel trapped. Client identified negative thoughts keeping her trapped as I'm gonna fail, I'm not good enough, and everyone is going to trial court judge me. Client reported when she thinks these thoughts she become anxious, depressed, and wants to avoid people and places. Client appeared to benefit from reflecting on thoughts keeping client from achieving mental wellness. Progress noted as client appears to have increased mental health awareness, but continues to struggle with applying coping skills outside of group. Eye Contact:: Good Motor Activity:: Restless Appearance:: Disheveled Speech:: Appropriate Mood:: Depressed Affect:: Flat Thoughts:: Linear, Logical, No evidence of hallucinations/delusions noted Staff Interventions:: Therapist facilitated discussion about what is keeping clients stuck from moving toward mental wellness. Therapist assisted clients in connecting how thoughts can contribute to keeping clients stuck. Therapist led discussion about barriers clients face from making changes to help one move forward. Therapist provided support by using active listening and giving feedback to others. Psychotherapy Session #3 Date Open:: 04/17/18 8 group members Time Started:: 11:25 Time Stopped:: 12:20 Targeted Problem #:: 1 Type of Group:: Functional Skills Development Goal of Group:: To identify what client can do to release self from those things that are trapping them to find more peace and quality in everyday life. Client Response/Progress/Benefit:: Client responded well to session, active group member. Client selected I'm going to fail at school as the negative thought keeping her most trapped. Client shared this thought leads to procrastination, avoidance, and lack of trying. Client stated the thought is realistic and unrealistic as client shared I could fail at something, but I won't fail at everything. Client reframed her thought to I won't fail at everything and if I do fail I'll learn from it. Client stated the reframed thought would give her more optimism and cause her to take initiative. Client appeared to benefit from learning various strategies to challenge negative thinking. Client to continue IOP to prevent decompensation and reduce anxiety. Eye Contact:: Good Motor Activity:: Restless Appearance:: Disheveled Speech:: Appropriate Mood:: Irritable, Depressed Affect:: Flat Thoughts:: Linear, Logical, No evidence of hallucinations/delusions noted Staff Interventions:: Therapist used examples of maintenance cycles to help clients gain awareness of how negative thinking is keeping clients stuck. Therapist facilitated discussion about different strategies for challenging negative thoughts, assisting clients in connecting how the strategies could benefit them. Therapist provided clients with homework to focus on one thing that is keeping them stuck and identify small steps to start moving towards mental wellness.
--- NOTE | 2018-04-19 17:03 | BH.SGPN ---
Service Group Progress Note - Session Psychotherapy Session #2 Date Open:: 04/19/18 - 9 group members Time Started:: 10:30 Time Stopped:: 11:20 Targeted Problem #:: 1 Type of Group:: Illness Management Goal of Group:: The goal of this session was to increase self-awareness of what is holding them back from moving towards mental wellness and discuss importance of taking action in their treatment. Client Response/Progress/Benefit:: Client responded well to session, active participant. Client appeared to connect with the quote sharing I need to make big changes, but I dont. Client stated, taking action involves realizing what she wants to change, but also doing the changes. Client identified things in her life that are holding her back from moving towards mental wellness such as family, life decisions, anxiety, and procrastination. Client stated she wants to take back control over these stressors and symptoms because client recognizes that avoidance does not help and client wants to feel more stable. Client appeared to benefit from identifying stressors and symptoms holding her back and from participating in a symbolic activity. Progress noted in clients improved use of coping skills. Client to continue IOP to prevent decompensation and reduce anxiety. Eye Contact:: Fair Motor Activity:: Appropriate Appearance:: Casual Speech:: Appropriate Mood:: Anxious, Irritable Affect:: Constricted Thoughts:: Linear, Logical, No evidence of hallucinations/delusions noted Staff Interventions:: Therapist facilitated discussion about what it means to take action in achieving mental health wellness. Therapist led activity in which clients were asked to identify the symptoms and things that they would like to take back control over. Therapist provided support by using active listening. Psychotherapy Session #3 Date Open:: 04/19/18 - 8 group members Time Started:: 11:30 Time Stopped:: 12:25 Targeted Problem #:: 1 Type of Group:: Functional Skills Development Goal of Group:: The goal of this session was to create a 30 day action plan that provides small goals that work towards taking action on one thing they would like to take back control over. Client Response/Progress/Benefit:: Client responded well to session, active participant. Client created a 30-day action plan to take back control over her mental health. Client's goal for the next 30 days is to not let others control my life. Client reported this plan will benefit client because her anxiety and depression are exacerbated when client feels out of control and has others telling her what to do. Client created weekly steps to accomplish this goal such as writing down boundaries she wants to set, practice being assertive, and identify what her values are. Client appeared to benefit from identifying and creating a 30-day action plan that will improve her mental wellness. Progress noted in clients report of utilizing thought challenging and breathing strategies, but continues to struggle with avoidance behaviors and setting boundaries. Eye Contact:: Good Motor Activity:: Appropriate Appearance:: Casual Speech:: Appropriate Mood:: Anxious Affect:: Constricted Thoughts:: Linear, Logical, No evidence of hallucinations/delusions noted Staff Interventions:: Therapist provided materials and guidance to help clients create a 30 day action plan. Therapist provided support by giving feedback and using active listening.
--- NOTE | 2018-04-19 17:44 | BH.SGPN ---
Service Group Progress Note - Session Psychotherapy Session #1 Date Open:: 04/19/18 Time Started:: 09:04 Time Stopped:: 10:24 Targeted Problem #:: 1 Type of Group:: Process - 8 participants Goal of Group:: The goal of today's group was to check-in with client's mood, stressors, and positives, review homework and introduce topic for the day. Client Response/Progress/Benefit:: Client engaged and openly discussed thoughts and frustrations with the group. She shared feeling tense and on edge today as she is continue to struggle with feeling unsupported and looked down upon by her grandmother and mother. CLient shared that she felt as though her privacy is being violated by her family as they continue to indicate having a right to know what client talks about in therapy. CLient expressed feeling skeptical that her supports would respond well to client discussing healthy boundaries with them. She benefited from brainstorming ways to improve her family's understanding of treatment and client's mental health concerns. CLient open to idea of a family session. Recommended continued IOP to work with client on establising and communicating healthy boundaries with her supports. Eye Contact:: Good Motor Activity:: Appropriate Appearance:: Casual Speech:: Appropriate Mood:: Anxious, Irritable, Depressed Affect:: Congruent Thoughts:: Linear, Logical, No evidence of hallucinations/delusions noted Staff Interventions:: Therapist used open-ended questions to elicit information about client's current stressors and mood state. Therapist was supportive by using active listening and reflection.
--- NOTE | 2018-04-23 10:19 | BH.SGPN_ITS ---
Service Group Progress Note - Session Psychotherapy Session #1 Date Open:: 04/23/18 - 4 group members Time Started:: 09:05 Time Stopped:: 10:00 Targeted Problem #:: 1 Type of Group:: Process Goal of Group:: The goal of today's group was to check-in with client's mood, stressors, and positives, and introduce topic for the day. Client Response/Progress/Benefit:: Client responded well to session, providing good insight to discussion. Client reports feeling pretty well today as she had a good weekend with her boyfriend and family. Client stated last week was stressful with family conflict, but client shared it has been resolved and went better than I thought. Client reports she still needs to set boundaries with her mother and grandmother, but for right now client is working on accepting what she cannot change. 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 Client appeared to benefit from identifying progress and setting a goal. Progress noted in client's improved outlook and acceptance, but continues to struggle with communicating needs and setting boundaries. Eye Contact:: Good Motor Activity:: Appropriate Appearance:: Neat Speech:: Appropriate Mood:: Euthymic Affect:: Full Thoughts:: Linear, Logical, No evidence of hallucinations/delusions noted Staff Interventions:: Therapist used open-ended questions to elicit information about client's current stressors and mood state. Therapist was supportive by using active listening and reflection.
--- NOTE | 2018-04-23 14:42 | BH.SGPN_ITS ---
Service Group Progress Note - Session Psychotherapy Session #2 Date Open:: 04/23/18 Time Started:: 10:08 Time Stopped:: 11:13 Targeted Problem #:: 1 Type of Group:: Illness Management - 5 participants Goal of Group:: To increase understanding of importance of boundaries and the different ways of setting boundaries (permeable, rigid, and flexible). Client Response/Progress/Benefit:: Client responded well to session, provided input throughout, and appeared to connect with the topic as she indicated struggling to maintain boundaries in her own life. CLient was able to discuss with the group how she defines boundaries and some of the potential pro's and con's of personal boundary setting. CLient noted that for her boundaries are difficult to set and maintain as she feels she does not know how to do so in a way that her family will understand. CLient reflected upon how her current boundaries impact her mental health and shared that she may end up feeling bad about herself or angry that she did not stick to a previously established boundary which results in increased negative thinking and depression. CLient benefitted from the psychoeducation portion of group reviewing different types of boundary setting and the characteristics associated. She expressed that having rigid boundaries can keep you safe but also ends up preventing you from getting help when needed. SHe did well to make connections between porous boundaries and her own life. Client would benefit from continued IOP with focus on improving bundaries with her supports. Eye Contact:: Good Motor Activity:: Appropriate Appearance:: Casual Speech:: Appropriate Mood:: Dysthymic Affect:: Congruent Thoughts:: Linear, Logical, No evidence of hallucinations/delusions noted Staff Interventions:: Therapist facilitated group discussion about defining boundaries. Therapist led discussion about importance of boundaries, assisting group members with identifying the impact of healthy and unhealthy boundaries. Therapist educated the group about the three different ways of setting boundaries and led discussion about each one. Therapist assisted clients with identifying the costs and benefits to the three different styles of boundary setting and how each style can impact mental health as well as relationships. Psychotherapy Session #3 Date Open:: 04/23/18 Time Started:: 11:19 Time Stopped:: 12:15 Targeted Problem #:: 1 Type of Group:: Functional Skills Development - 4 participants Goal of Group:: Increase awareness of current boundary style, identifying impact current way of setting boundaries has on mental health as well as relationships. Client Response/Progress/Benefit:: Client again did well to remain engaged and an active group participant. She was willing to participate in both discussion and activity portions and discussed her boundaries in relation to the representation she avril during the activity. Client indicated that for her she finds it easiest to maintain healthy boundaries with people she is not related to and discussed feeling as though she almost lives in two houses. Client described one house, her healthy boundary house, as nice and well kept with doors that open and close or could lock if needed. She shared that this represents her boundaries with friends or nonrelatives as she is able to easily set and maintain appropriate boundaries with them. WHen discussing the second house, client shared that this is a representation of boundaries with her mom and grandma. She described the house as cracked and falling apart with two missiles headed towards it. CLient noted that she used to have a missle defense system but that the system is down as she has tried setting appropriate boundaries but feels that her supports do not adhere to them. Client benefitted from identifying areas she feels she would be able to strengthen her boundaries with her supports and shared plans to have a family session with her mom and grandmother to discuss her mental health needs. Client displaying progress in her level of awareness and is beginning to identify strategies needed to promote mental health however continues to struggle with consistency. Client recommended ongoing IOP to prevent decompensation and continue to promote applicaiton of healthy skills learned. Eye Contact:: Good Motor Activity:: Appropriate Appearance:: Casual Speech:: Appropriate Mood:: Dysthymic Affect:: Congruent Thoughts:: Linear, Logical, No evidence of hallucinations/delusions noted Staff Interventions:: Therapist provided the group member with a wide array of supplies, asking each group member to create a castle that would represent the boundaries they currently have in place. The expressive activity was used as a tool to help increase client?s self-awareness of their boundaries. Therapist processed each group member?s castle, inquiring what style the group member currently uses most frequently and how current boundary style impacts his/her mental health and relationships. Therapist provided support by using reflective listening and giving feedback.
--- NOTE | 2018-04-23 17:03 | BH.SGPN_ITS ---
Service Group Progress Note - Session Psychotherapy Session #2 Date Open:: 04/17/18 group members Time Started:: 10:17 Time Stopped:: 11:12 Targeted Problem #:: 1 Type of Group:: Illness Management Goal of Group:: To identify within self what is keeping client trapped from achieving better quality of life. Client Response/Progress/Benefit:: Client responded well to session, participating in discussion. Client connected with the quote sharing we can make things worse by how we respond. Client stated anxiety, depression, and negative people have kept client feeling stuck. Client able to connect how one' s negative thoughts can make her feel trapped. Client identified negative thoughts keeping her trapped as I'm gonna fail, I'm not good enough, and everyone is going to curb and gutter laborer me. Client reported when she thinks these thoughts she become anxious, depressed, and wants to avoid people and places. Client appeared to benefit from reflecting on thoughts keeping client from achieving mental wellness. Progress noted as client appears to have increased mental health awareness, but continues to struggle with applying coping skills outside of group. Eye Contact:: Good Motor Activity:: Restless Appearance:: Disheveled Speech:: Appropriate Mood:: Depressed Affect:: Flat Thoughts:: Linear, Logical, No evidence of hallucinations/delusions noted Staff Interventions:: Therapist facilitated discussion about what is keeping client?s stuck from moving toward mental wellness. Therapist assisted clients in connecting how thoughts can contribute to keeping clients stuck. Therapist led discussion about barriers clients face from making changes to help one move forward. Therapist provided support by using active listening and giving feedback to others. Psychotherapy Session #3 Date Open:: 04/17/18 group members Time Started:: 11:25 Time Stopped:: 12:20 Targeted Problem #:: 1 Type of Group:: Functional Skills Development Goal of Group:: To identify what client can do to release self from those things that are trapping them to find more peace and quality in everyday life. Client Response/Progress/Benefit:: Client responded well to session, active group member. Client selected I'm going to fail at school as the negative thought keeping her most trapped. Client shared this thought leads to procrastination, avoidance, and lack of trying. Client stated the thought is realistic and unrealistic as client shared I could fail at something, but I won 't fail at everything. Client reframed her thought to I won't fail at everything and if I do fail I'll learn from it. Client stated the reframed thought would give her more optimism and cause her to take initiative. Client appeared to benefit from learning various strategies to challenge negative thinking. Client to continue IOP to prevent decompensation and reduce anxiety. Eye Contact:: Good Motor Activity:: Restless Appearance:: Disheveled Speech:: Appropriate Mood:: Irritable, Depressed Affect:: Flat Thoughts:: Linear, Logical, No evidence of hallucinations/delusions noted Staff Interventions:: Therapist used examples of maintenance cycles to help clients gain awareness of how negative thinking is keeping clients stuck. Therapist facilitated discussion about different strategies for challenging negative thoughts, assisting clients in connecting how the strategies could benefit them. Therapist provided clients with homework to focus on one thing that is keeping them stuck and identify small steps to start moving towards mental wellness.
--- NOTE | 2018-04-23 17:05 | BH.SGPN_ITS ---
Service Group Progress Note - Session Psychotherapy Session #2 Date Open:: 04/19/18 9 group members Time Started:: 10:30 Time Stopped:: 11:20 Targeted Problem #:: 1 Type of Group:: Illness Management Goal of Group:: The goal of this session was to increase self-awareness of what is holding them back from moving towards mental wellness and discuss importance of taking action in their treatment. Client Response/Progress/Benefit:: Client responded well to session, active participant. Client appeared to connect with the quote sharing ?I need to make big changes, but I don?t.? Client stated, taking action involves realizing what she wants to change, but also ?doing the changes.? Client identified things in her life that are holding her back from moving towards mental wellness such as family, life decisions, anxiety, and procrastination. Client stated she wants to take back control over these stressors and symptoms because client recognizes that avoidance does not help and client wants to feel more stable. Client appeared to benefit from identifying stressors and symptoms holding her back and from participating in a symbolic activity. Progress noted in client?s improved use of coping skills. Client to continue IOP to prevent decompensation and reduce anxiety. Eye Contact:: Fair Motor Activity:: Appropriate Appearance:: Casual Speech:: Appropriate Mood:: Anxious, Irritable Affect:: Constricted Thoughts:: Linear, Logical, No evidence of hallucinations/delusions noted Staff Interventions:: Therapist facilitated discussion about what it means to take action in achieving mental health wellness. Therapist led activity in which clients were asked to identify the symptoms and things that they would like to take back control over. Therapist provided support by using active listening. Psychotherapy Session #3 Date Open:: 04/19/18 - 8 group members Time Started:: 11:30 Time Stopped:: 12:25 Targeted Problem #:: 1 Type of Group:: Functional Skills Development Goal of Group:: The goal of this session was to create a 30 day action plan that provides small goals that work towards taking action on one thing they would like to take back control over. Client Response/Progress/Benefit:: Client responded well to session, active participant. Client created a 30-day action plan to take back control over her mental health. Client's goal for the next 30 days is to ?not let others control my life.? Client reported this plan will benefit client because her anxiety and depression are exacerbated when client feels out of control and has others telling her what to do. Client created weekly steps to accomplish this goal such as writing down boundaries she wants to set, practice being assertive, and identify what her values are. Client appeared to benefit from identifying and creating a 30-day action plan that will improve her mental wellness. Progress noted in client?s report of utilizing thought challenging and breathing strategies, but continues to struggle with avoidance behaviors and setting boundaries. Eye Contact:: Good Motor Activity:: Appropriate Appearance:: Casual Speech:: Appropriate Mood:: Anxious Affect:: Constricted Thoughts:: Linear, Logical, No evidence of hallucinations/delusions noted Staff Interventions:: Therapist provided materials and guidance to help clients create a 30 day action plan. Therapist provided support by giving feedback and using active listening.
--- NOTE | 2018-04-24 11:04 | BH.SGPN ---
Service Group Progress Note - Session Psychotherapy Session #1 Date Open:: 04/24/18 Time Started:: 09:05 Time Stopped:: 10:17 Targeted Problem #:: 1 Type of Group:: Process - 7 participants Goal of Group:: The goal of today's group was to check-in with clients and review homework from previous group session. Client Response/Progress/Benefit:: Client responded well to session and remained engaged throughout. She discussed feeling anxious today as she has been hoping to adopt a dog but is afraid her application will not go through due to her stepdad saying she can not have a dog at the house. Client indicates plans to use her grandmother's address as the primary home of residence for the dog. CLient appeared to believe that this may cause tension with her mother and stepdad as they don't think she is ready for a pet but client shared not caring. She went on to discuss ongoing difficulties with communicating her mental health needs to her family and feeling as though they are unsupportive or are judging client in a negative way. CLient benefitted from group participants relating and empathizing with client frustrations of feeling her mental health is being ignored or minimized. Client displayed progress as she shared openness to emphasizing with her supports the importance of a family session. Recommended continued IOP to work with client on improving consistent use of thought challenging and healthy decision making skills to aid in improving over all symptom management. Eye Contact:: Good Motor Activity:: Appropriate Appearance:: Casual Speech:: Appropriate Mood:: Anxious, Irritable Affect:: Congruent Thoughts:: Linear, Logical, No evidence of hallucinations/delusions noted Staff Interventions:: Therapist facilitated the group session by asking open ended questions that encouraged group members to discuss their weekend and current mood state. Assisted group members in the review of their homework from previous group session.
--- NOTE | 2018-04-25 11:35 | BH.SGPN_ITS ---
Service Group Progress Note - Session Psychotherapy Session #2 Date Open:: 04/24/18 Time Started:: 10:25 Time Stopped:: 11:15 Targeted Problem #:: 1 Type of Group:: Illness Management Goal of Group:: To increase understanding how positive and negative forces in life can impact balance in life. Client Response/Progress/Benefit:: Client tend to be quiet listened attentively to others and shared her thoughts and feelings at times. Client connected with others thoughts that growth requires multiple factors and forces in order for it to occur and what not just happening on its own. Client reported she needs to remember that growth is slow and incorporating multiple factors into her daily routine can help her reach the personal growth she is striving for. Seemed to benefit from increasing awareness of different strategies she can engage in that would be beneficial in moving forward towards progress. Eye Contact:: Fair Motor Activity:: Appropriate Appearance:: Casual Speech:: Appropriate Mood:: Anxious Affect:: Constricted Thoughts:: Linear, Logical, No evidence of hallucinations/delusions noted Staff Interventions:: Therapist facilitated group discussion about the various forces of life and helped clients connect the impact they have on balance in life. Therapist led group in an experiential activity in which group members had to work together to balance an object and move it to a designated location. Therapist utilized the activity as a tool to process the challenges connected with balancing various forces. Psychotherapy Session #3 Date Open:: 04/24/18 Time Started:: 11:22 Time Stopped:: 12:15 Targeted Problem #:: 1 Type of Group:: Functional Skills Development Goal of Group:: To identify positive and negative forces in life and identify which forces are helping stability and which forces are contributing to instability. Client Response/Progress/Benefit:: Client worked cooperatively with others during activity, listened attentively to others and contributed to discussion if elicited by therapist. Client identified her positive forces to include: Encouragement, self-care, positive supports, hope and optimism, positive thoughts, and medication. Client reported her negative forces to include family members, negative thinking, and not putting forth the action part of applying the skills and strategies she is learning. Client identified her family to be the most impactful force that is making it more difficult for client to feel stable and moves towards her progress. Client seemed to benefit from increasing awareness of her positive and negative forces as well as identifying the importance of taking action on increasing her self-care, challenging negative thoughts and increasing healthy support people. Eye Contact:: Fair Motor Activity:: Appropriate Appearance:: Casual Speech:: Appropriate Mood:: Anxious Affect:: Congruent Thoughts:: Linear, Logical, No evidence of hallucinations/delusions noted Staff Interventions:: Therapist provided group with an example of a scenario of a person and the individual???s positive and negative forces. Therapist provided each group member with a worksheet in which they were to identify five positive and five negative forces in their life. Therapist processed the activity with the group, helping others connect the impact certain forces have on their life balance.
--- NOTE | 2018-04-26 10:37 | BH.COMM ---
Communication Note - Communication with Client Communication Note: Therapist called client as she no called/no showed for her scheduled IOP group and individual session. Client reported her alarm did not go off, but she wants to still come in for her individual session. Client shared plan to come in today for a session with this therapist.
--- NOTE | 2018-04-26 14:09 | BH.MDN ---
Multi-Disciplinary Note - Note 45-min Individual Time Started:: 11:47 Date: 04/26/18 Purpose of session/treatment goals addressed:: The purpose of this session was to address client's current stressors, barriers, and avoidance behaviors. Another goal was to discuss strategies to improve communication, decision making, and boundaries. Other topics included negative thinking and goal setting. Eye Contact:: Fair Motor Activity:: Restless Appearance:: Casual Speech:: Appropriate, Other - monotone Mood:: Anxious, Other - tearful Affect:: Congruent Thoughts:: Linear, Logical, No evidence of hallucinations/delusions noted Staff Interventions:: Therapist used active listening and open-ended questions to explore client's current stressors, symptoms, and barriers. Therapist helped client gain insight to the consequences of avoidance behaviors and assisted client in completing a decisional balance worksheet. Therapist provided client a safe place to express and process her emotions. Therapist provided client strategies to improve communication and set boundaries. Therapist gave client a weekend challenge of being assertive one time per day. Client Response:: Client responded well to session, open to meeting with therapist. Client shared last night was bad which client contributes to forgetting to take her medication and her boyfriend being irritable. Client stated her boyfriend struggles with his own mental health, and client at times feels drained as he does not want client's help. Client able to set a boundary with her boyfriend sharing, it's not up to me for him to feel better. Client shared earlier this week she was planning to adopt a dog, but that went downhill real fast. Client reported her mother's boyfriend became angry with client then client had difficulties with the [facility] which resulted in client not being able to adopt the dog she wanted. Client was tearful while sharing as she reported the dog would have helped her mood and mental health. Client able to identify strategies to manage her emotions in a healthy way such as talking about it with positive supports, visiting a friend, and finding other solutions to adopting a dog. Client stated she continues to struggle with communicating needs, avoidance, and setting boundaries as client fears confrontation and upsetting others. Client and therapist processed the pros and cons of being assertive and setting boundaries. Client was receptive to being assertive once a day to increase confidence. Client shared she has been working on some of her anxiety ladder goals and has accomplished filling out her rent application and applying for jobs. Client stated she has been having negative, what if thoughts about these goals, but has been able to challenge them. Risks/Concerns:: Client denies suicidal ideation, plan, and intent as of 04/26/18. Client future oriented as evidenced by report of looking forward to spending time with a friend this weekend. Progress Toward Goals/Plan:: Client demonstrating progress towards reducing panic and anxiety as she reports increased insight to triggers and application of thought challenging and calming strategies. Client reports ongoing avoidance behaviors, personalizing, and variable emotional regulation skills. Client reports wanting to continue improving assertive communication and setting boundaries. Client to continue IOP to prevent decompensation and promote emotional regulation. Time Stopped:: 12:35
--- NOTE | 2018-04-26 14:18 | BH.MDN_ITS ---
Multi-Disciplinary Note - Note 45-min Individual Time Started:: 11:47 Date: 04/26/18 Purpose of session/treatment goals addressed:: The purpose of this session was to address client's current stressors, barriers, and avoidance behaviors. Another goal was to discuss strategies to improve communication, decision making , and boundaries. Other topics included negative thinking and goal setting. Eye Contact:: Fair Motor Activity:: Restless Appearance:: Casual Speech:: Appropriate, Other - monotone Mood:: Anxious, Other - tearful Affect:: Congruent Thoughts:: Linear, Logical, No evidence of hallucinations/delusions noted Staff Interventions:: Therapist used active listening and open-ended questions to explore client's current stressors, symptoms, and barriers. Therapist helped client gain insight to the consequences of avoidance behaviors and assisted client in completing a decisional balance worksheet. Therapist provided client a safe place to express and process her emotions. Therapist provided client strategies to improve communication and set boundaries. Therapist gave client a weekend challenge of being assertive one time per day. Client Response:: Client responded well to session, open to meeting with therapist. Client shared last night was bad which client contributes to forgetting to take her medication and her boyfriend being irritable. Client stated her boyfriend struggles with his own mental health, and client at times feels drained as he does not want client's help. Client able to set a boundary with her boyfriend sharing, it's not up to me for him to feel better. Client shared earlier this week she was planning to adopt a dog, but that went downhill real fast. Client reported her mother's boyfriend became angry with client then client had difficulties with the [facility] which resulted in client not being able to adopt the dog she wanted. Client was tearful while sharing as she reported the dog would have helped her mood and mental health. Client able to identify strategies to manage her emotions in a healthy way such as talking about it with positive supports, visiting a friend, and finding other solutions to adopting a dog. Client stated she continues to struggle with communicating needs, avoidance, and setting boundaries as client fears confrontation and upsetting others. Client and therapist processed the pros and cons of being assertive and setting boundaries. Client was receptive to being assertive once a day to increase confidence. Client shared she has been working on some of her anxiety ladder goals and has accomplished filling out her rent application and applying for jobs. Client stated she has been having negative, what if thoughts about these goals, but has been able to challenge them. Risks/Concerns:: Client denies suicidal ideation, plan, and intent as of . Client future oriented as evidenced by report of looking forward to spending time with a friend this weekend. Progress Toward Goals/Plan:: Client demonstrating progress towards reducing panic and anxiety as she reports increased insight to triggers and application of thought challenging and calming strategies. Client reports ongoing avoidance behaviors, personalizing, and variable emotional regulation skills. Client reports wanting to continue improving assertive communication and setting boundaries. Client to continue IOP to prevent decompensation and promote emotional regulation. Time Stopped:: 12:35
--- NOTE | 2018-05-01 09:43 | BH.COMM ---
Communication Note - Communication with Client Communication Note: Client called to cancel her IOP session today due to illness. Client reports plan to attend group and individual session tomorrow 05/02/18.
--- NOTE | 2018-05-02 10:13 | BH.SGPN ---
Service Group Progress Note - Session Psychotherapy Session #1 Date Open:: 05/02/18 - 5 group members Time Started:: 09:03 Time Stopped:: 09:58 Targeted Problem #:: 1 Type of Group:: Process Goal of Group:: The goal of today's group was to check-in with client's mood, stressors, and positives, review homework and introduce topic for the day. Client Response/Progress/Benefit:: Client responded well to session, providing coping strategies to peers. Client reports feeling stressed but optimistic today as client has been productive this week, but continues to feel anxious around her stepfather which has led to avoidance. Client stated she has not been as consistent with taking her medications which may be contributing to client's increased anxious thinking. Client reported yesterday she had paranoid thoughts that the camera in her living room was on and that her family was watching her. Client stated she has not talked to her mother about this, instead client hid in her basement. Client open to feedback from therapist on challenging anxious thoughts and being medication compliant. Client shared on a positive note she has been able to overcome several tasks that made her anxious such as enrolling in a class. Client appeared to benefit from verbalizing her worried thoughts and processing with the group. Client showing progress with increased awareness and utilizing coping strategies, but continues to struggle with avoidance behaviors that exacerbate anxiety and challenging negative thoughts. Eye Contact:: Good Motor Activity:: Restless Appearance:: Casual Speech:: Appropriate Mood:: Anxious Affect:: Congruent Thoughts:: Racing, No evidence of hallucinations/delusions noted Staff Interventions:: Therapist used open-ended questions to elicit information about client's current stressors and mood state. Therapist was supportive by using active listening and reflection.
--- NOTE | 2018-05-02 14:09 | BH.MDN ---
Multi-Disciplinary Note - Note 60-min Individual Time Started:: 12:23 Date: 05/02/18 Purpose of session/treatment goals addressed:: The purpose of this session was to process, challenge, and reframe cognitive distortions that cause anxiety and lead to avoidance behaviors. Another goal was to establish daily coping skill goals and identify strategies to promote medication consistency. Eye Contact:: Good Motor Activity:: Restless Appearance:: Casual Speech:: Appropriate Mood:: Anxious Affect:: Congruent Thoughts:: Linear, Logical, No evidence of hallucinations/delusions noted Staff Interventions:: Therapist used active listening and open-ended questions to explore client's recent stressors, warning signs for anxiety, and cognitive distortions. Therapist taught client various CBT and DBT thought challenging strategies to reframe and challenge anxious thoughts keeping client stuck. Therapist used a rating scale to help client gain awareness of the rewards versus the costs of anxiety provoking tasks. Therapist helped client set daily goals for utilizing coping skills and assisted client in establishing strategies to improve medication consistency. Therapist gave client homework to practice the skills discussed in session. Therapist gave client the DSM-5 cross-cutting symptom measure to dilia client's progress as she is alf through the program. Client Response:: Client responded well to session, reporting she already feels less anxious than this morning. Client shared she feels like she has made progress, as client reports fewer panic attacks, but client continues to struggle with challenging distorted thoughts. Client stated, there's a lot of stuff I want to do, but my heads goes wild. Client's thoughts include: what if I see someone I know, what if I'm the new person, what if it takes too much time. Client able to recognize these thoughts are often accompanied by somatic symptoms and anxiety which prevents client from doing things that client believes will be helpful, such as hanging out with friends, going for walks, and going to coffee shops. Client open to processing, reframing, and challenging these thoughts. Client responded well to vieira mind techniques, assessing likelihood, and using calming strategies to help improve decision making. Client challenged her anxious thoughts by looking at worst case, best case, and most realistic. Client reflected that most of the time when she does something she is anxious about it wasnt as bad as I thought. Client receptive to documenting these moments to help increase confidence for future anxiety provoking situations. Client stated she would like to set a daily goal to be more social and active to avoid being stagnant. Client's goal today is to go to [employer] or spend time with her grandparents. Client shared both goals are anxiety provoking, but the reward is greater than the anxiety. Client reported she recently felt paranoid, but believes it was due to not taking her medication consistently. Client and therapist identified strategies to help client remember her to take her medication and client stated the strategies will also help client remember to reflect on coping skills. Risks/Concerns:: Client denies suicidal ideation, plan, and intent as of 05/02/18. Client demonstrating future orientation throughout session as shown by report of spending time with her grandparents and wanting to contact a friend. Progress Toward Goals/Plan:: Client demonstrating progress towards treatment goals as evidenced by a reduction in her DSM-5 cross-cutting symptom scores. Additionally, client showing progress as she reports reduced panic and utilizing thought challenging techniques. Client reports ongoing difficulties with cognitive distortions and anxiety which leads to avoidance behaviors, but continues to be receptive with working on these in session. Client to complete challenges from session today to promote medication consistency and reduce anxiety. Client to continue IOP to promote gains and increase emotional regulation. Time Stopped:: 13:16
--- NOTE | 2018-05-02 14:14 | BH.MDN_ITS ---
Multi-Disciplinary Note - Note 60-min Individual Time Started:: 12:23 Date: 05/02/18 Purpose of session/treatment goals addressed:: The purpose of this session was to process, challenge, and reframe cognitive distortions that cause anxiety and lead to avoidance behaviors. Another goal was to establish daily coping skill goals and identify strategies to promote medication consistency. Eye Contact:: Good Motor Activity:: Restless Appearance:: Casual Speech:: Appropriate Mood:: Anxious Affect:: Congruent Thoughts:: Linear, Logical, No evidence of hallucinations/delusions noted Staff Interventions:: Therapist used active listening and open-ended questions to explore client's recent stressors, warning signs for anxiety, and cognitive distortions. Therapist taught client various CBT and DBT thought challenging strategies to reframe and challenge anxious thoughts keeping client stuck. Therapist used a rating scale to help client gain awareness of the rewards versus the costs of anxiety provoking tasks. Therapist helped client set daily goals for utilizing coping skills and assisted client in establishing strategies to improve medication consistency. Therapist gave client homework to practice the skills discussed in session. Therapist gave client the DSM-5 cross- cutting symptom measure to dilia client's progress as she is halfway through the program. Client Response:: Client responded well to session, reporting she already feels less anxious than this morning. Client shared she feels like she has made progress, as client reports fewer panic attacks, but client continues to struggle with challenging distorted thoughts. Client stated, there's a lot of stuff I want to do, but my heads goes wild. Client's thoughts include: what if I see someone I know, what if I'm the new person, what if it takes too much time. Client able to recognize these thoughts are often accompanied by somatic symptoms and anxiety which prevents client from doing things that client believes will be helpful, such as hanging out with friends, going for walks, and going to coffee shops. Client open to processing, reframing, and challenging these thoughts. Client responded well to vieira mind techniques, assessing likelihood, and using calming strategies to help improve decision making. Client challenged her anxious thoughts by looking at worst case, best case, and most realistic. Client reflected that most of the time when she does something she is anxious about ?it wasn?t as bad as I thought.? Client receptive to documenting these moments to help increase confidence for future anxiety provoking situations. Client stated she would like to set a daily goal to be more social and active to avoid being stagnant. Client's goal today is to go to [employer] or spend time with her grandparents. Client shared both goals are anxiety provoking, but the reward is greater than the anxiety. Client reported she recently felt paranoid, but believes it was due to not taking her medication consistently. Client and therapist identified strategies to help client remember her to take her medication and client stated the strategies will also help client remember to reflect on coping skills. Risks/Concerns:: Client denies suicidal ideation, plan, and intent as of . Client demonstrating future orientation throughout session as shown by report of spending time with her grandparents and wanting to contact a friend. Progress Toward Goals/Plan:: Client demonstrating progress towards treatment goals as evidenced by a reduction in her DSM-5 cross-cutting symptom scores. Additionally, client showing progress as she reports reduced panic and utilizing thought challenging techniques. Client reports ongoing difficulties with cognitive distortions and anxiety which leads to avoidance behaviors, but continues to be receptive with working on these in session. Client to complete challenges from session today to promote medication consistency and reduce anxiety. Client to continue IOP to promote gains and increase emotional regulation. Time Stopped:: 13:16
--- NOTE | 2018-05-02 17:13 | BH.SGPN_ITS ---
Service Group Progress Note - Session Psychotherapy Session #2 Date Open:: 05/02/18 Time Started:: 10:07 Time Stopped:: 11:12 Targeted Problem #:: 1 Type of Group:: Illness Management - 6 participants Goal of Group:: The goal of group was to increase understanding of coping strategies and impact problems have on self. Another goal was to practice utilizing coping skills in the moment. Client Response/Progress/Benefit:: Client was an active participant and engage throughout. She did well to work with fellow participants on discussing the merits of the coping skills as well as why we may fall into unhealthy coping patterns. Benefited from engaging in the activity portion of the session as she challenged herself to speak up a group setting. Displaying progress in her ability to identify effective strategies for her own mental health symptoms and internalize treatment concepts. Recommended continued IOP in order to maintain stability as well as consistently build upon healthy coping skill repertoire. Eye Contact:: Good Motor Activity:: Appropriate Appearance:: Casual Speech:: Appropriate Mood:: Euthymic, Anxious Affect:: Congruent Thoughts:: Linear, Logical, No evidence of hallucinations/delusions noted Staff Interventions:: Therapist facilitated the group discussion about coping strategies. Therapist provided group members with folders and gave them the challenge to work together and build the tallest tower with the given supplies. Therapist utilized the activity as a tool to process what it feels like when dealing with problems and what strategies they used to cope throughout activity. Psychotherapy Session #3 Date Open:: 05/02/18 Time Started:: 11:19 Time Stopped:: 12:18 Targeted Problem #:: 1 Type of Group:: Functional Skills Development - 5 participants Goal of Group:: Goal was to increase client?s self-awareness on their use of coping strategies and increase repertoire of healthy coping strategies. Client Response/Progress/Benefit:: Client responded well and remained engaged throughout. She discussed at times struggling to use healthy means of coping in times of high stress or anxiety. Client indicated benefitting from the education portion of session covering different types of coping and pros/cons of each category. CLient indicated wanting to begin using grounding strategies, specifically walking barefoot outside as a way to calm her mind. CLient showing progress in ability to make connections between material and her own mental health. Recommended continued IOP to further promote use of skills learned as well as improve client ability to counter distorted thinking patterns. Eye Contact:: Good Motor Activity:: Appropriate Appearance:: Casual Speech:: Appropriate Mood:: Euthymic Affect:: Congruent Thoughts:: Linear, Logical, No evidence of hallucinations/delusions noted Staff Interventions:: Therapist facilitated discussion about the different types of coping skills. Therapist led group in an activity in which group members were asked to brainstorm coping strategies that fit in each coping skill category. Therapist reviewed each coping strategy with the group and led a discussion about whether the coping strategies identified were healthy or unhealthy. Therapist provided homework in which group members creating a coping skills menu and would practice two skills a day.
--- NOTE | 2018-05-03 11:31 | BH.MTP_ITS ---
Treatment Plan Review Date of Admission:: 04/02/18 Date of Treatment Plan Review:: 05/03/18 Admitting Diagnoses:: Diagnosis generalized anxiety disorder F 41.1; Depressive disorder unspecified. Current Diagnoses:: Diagnosis generalized anxiety disorder F 41.1; Depressive disorder unspecified. Patient's Response to Treatment:: Client appears to be responding well to treatment as evidenced by her engagement in individual and group sessions, report of reduced panic, and decreased scores on the DSM-5 cross-cutting symptom measure. Client has been an active participant in group and individual sessions as shown by her application of coping skills, engagement with peers, and communication in group. In individual sessions client is receptive to learning and applying thought challenging, relaxation, and emotional regulation strategies to reduce anxiety and improve functioning. Client has also been open to improving her boundaries, using assertive communication, and working on accomplishing ?fear ladder? goals. In groups, client has good boundaries, good eye contact, and provides valuable insight to discussions. Client has been somewhat consistent with attendance, having missed two days and has arrived late approximately three times. Client shared in her last individual session she has been enjoying group and the homework provided by therapist. Status of Current Problems and Symptoms: Client reports ongoing anxiety symptoms including somatic symptoms, feeling on edge, and negative thinking. Client shared she continues to struggle with social anxiety and what if thinking which leads to avoidance behaviors and isolation. Additionally, client reports barriers with setting boundaries, dealing with confrontation, and communicating assertively with her boyfriend and her family. Client reports issues with medication compliance. Client shared she forgot to take her medication 04/30/18 and throughout that day felt paranoid per client report. Client reports reduced depressive symptoms and reports less frequent panic attacks. Problem #1 Problem Name:: Client will reduce depressive symptoms, self-judging, and suicidal ideation Status of Goals:: Client demonstrating progress toward treatment goals, has not yet met this goal. Client's scores for depression on the DSM symptom measure went from a 5 at admission to a 4 at review date which shows progress. Client denies self-harming which demonstrates progress. Client able to identify triggers for depression and healthy coping skills, but reports lack of implementation at times. Client currently working on challenging distorted thoughts of self, increasing socialization, and maintaining medication compliance. Team Recommendations:: Client recommended to continue treatment goal as client can benefit from ongoing work on challenging cognitive distortions and mistaken beliefs. Client continues to report low energy, isolation, and low self-esteem, so client can benefit from increasing socialization and setting daily goals to promote behavioral activation. Client recommended to follow up with establishing outpatient psychiatry and counseling. Problem #2 Problem Name:: reduce duration, intensity, and frequency of panic and decrease ruminations Status of Goals:: Client demonstrating progress towards treatment goal, but has not yet accomplished goal. Client continues to report high anxiety related to setting boundaries, communication, and socializing. Client reports reduced frequency of panic attacks and increased ability to cope with anxiety. Client's DSM symptom measure score for anxiety went from a 10 at admission to a 6 at review evaluation. Client currently working on challenging cognitive distortions , using vieira mind, and practicing mindfulness. Client also working on gradually accomplishing fear ladder goals as client endorses anxiety and avoidance behaviors. Team Recommendations:: Client recommended to continue working towards treatment goal as she has made progress with utilizing coping skills to manage symptoms, but continues to report ruminations, panic, and feeling anxious several days a week. Client and therapist currently working on challenging cognitive distortions, accomplishing fear ladder goals, and setting boundaries. Client also recommended to establish outpatient psychiatry and counseling.
--- NOTE | 2018-05-03 12:56 | PCM.PN.BLA ---
Progress Note Patient seen in follow-up for generalized anxiety disorder F 41.1, depressive disorder unspecified vitamin D deficiency. History is been obtained per interview with patient, discussion with staff, review of chart. Case discussed with treatment team. Chief complaint-anxiety/depression Interim history Patient reports that overall she feels better within the past month. She reports the anxiety is about the same but I am managing it better. She reports using coping skills and thought challenging. Panic attacks have decreased in frequency. She reports panic attacks once per week associated with her boyfriend being rude invalidating. Discussed boundary setting with boyfriend. Mild depressive symptoms wax and wane. Reports increased depression after panic attacks. Last panic attack this weekend associated with hurtful comments by boyfriend. No suicidal or homicidal ideation. No symptoms consistent with psychosis. Sleeping from 11 PM to 8 AM. Appetite normal. Denies nausea vomiting or diarrhea. Denies ingestion of alcohol. Complaint of mild sore throat and edema of her eyelids this morning. No erythema or evidence of cellulitis. Denies fever or visual change. Compliant with Cymbalta 60 mg daily. Denies adverse effect. Has not needed Ativan. Mental status exam alert and oriented . No acute distress. Ambulatory with normal gait and station. Appears stated age. Casually dressed and groomed. Appropriate hygiene. Cooperative with interview. Good eye contact. No psychomotor agitation or retardation. Mood elderly depressed improved. Affect congruent. Speech is clear and with regular rate and rhythm. Language fluent. Thought process organized. Associations logical. Thought content significant for ruminative anxiety and themes of depression. No suicidal or homicidal ideation related or detected.. No symptoms consistent with psychosis noted or detected. Immediate recent and remote memory grossly intact. Attention and concentration are fair. Estimated intelligence and fund of knowledge average. Judgment and insight improved. Labs and testing requested from primary care physician. Further lab work will be obtained as needed. Diagnosis Generalized anxiety disorder F 41.1 Depressive disorder unspecified Vitamin D deficiency Fibromyalgia Plan Continue IOP as a structured setting is necessary to maintain gains and prevent decompensation. Risk benefits and alternatives of medications discussed with patient. Patient acknowledges understanding. Continue Cymbalta 60 mg daily. Continue vitamin D supplement. Encouraged to establish with outpatient psychiatric providers for when IOP complete. 22 minutes of Insight oriented psychotherapy provided regarding dynamics with boyfriend and identifying emotions. Patient acknowledges understanding and is in agreement with plan. Feels able to maintain safety. Agrees to seek help or emergency care if feeling unsafe to self or others.
--- NOTE | 2018-05-03 14:18 | BH.SGPN ---
Service Group Progress Note - Session Psychotherapy Session #2 Date Open:: 05/03/18 Time Started:: 10:05 Time Stopped:: 11:05 Targeted Problem #:: 1 Type of Group:: Illness Management Goal of Group:: To increase understanding of fixed vs growth mindset and the importance of looking at problems in different ways. Client Response/Progress/Benefit:: Client contributed to discussion at times and listened attentively to others. Client connected with the quote that sometimes she will have that this is impossible mindset which results in her doing nothing. When processing activity connected importance of the group not giving up and thinking outside box to come up with strategy to help group be successful. Seemed to benefit from increasing awareness of fixed mindset versus growth mindset and impact mindset can have on progress. Eye Contact:: Fair Motor Activity:: Appropriate Appearance:: Casual Speech:: Appropriate Mood:: Depressed Affect:: Congruent Thoughts:: Linear, Logical, No evidence of hallucinations/delusions noted Staff Interventions:: Therapist facilitated discussion about fixed vs growth mindset. Therapist led group in an activity that would initially seem impossible to complete, but once group members looked at the problem in a different way they would be able to see alternative solutions. Therapist utilized the activity as a tool to discuss overcoming those situations that seem impossible to get through. Psychotherapy Session #3 Date Open:: 05/03/18 Time Started:: 11:15 Time Stopped:: 12:10 Targeted Problem #:: 1 Type of Group:: Functional Skills Development Goal of Group:: To identify personal barriers that get in the way of accomplishing tasks and identify internal and external resources to help overcome difficult situations. Client Response/Progress/Benefit:: Client alert and oriented, contributed to discussion if elicited by therapist. client identified her personal barriers to be anxiety, fear of doing better, worrying about what others think of her, and pain from fibromyalgia. Client related to another peer about fear of doing better because she expects somethign bad will happen. Client gave example that she thinks she should break up with her boyfriend since things are going well and she is predicting it will go bad so should just end it now. Client could identify this thought as distorted. Client seemed to benefit from group identifying internal and external resources to help overcome barriers. Eye Contact:: Fair Motor Activity:: Appropriate Appearance:: Casual Speech:: Appropriate Mood:: Depressed Affect:: Constricted Thoughts:: Linear, Logical, No evidence of hallucinations/delusions noted Staff Interventions:: Therapist facilitated discussion about internal and external resources and helped clients connect various internal resources they use. Therapist provided group members with a handout that gave information about various external resources the clients could utilize to get support. Therapist gave clients a worksheet in which they were asked to identify several barriers that get in their way to overcoming difficult situations. They also were asked to identify several internal and external resources they could use when needed.
--- NOTE | 2018-05-08 14:17 | BH.SGPN ---
Service Group Progress Note - Session Psychotherapy Session #1 Date Open:: 05/08/18 Time Started:: 09:10 Time Stopped:: 10:10 Type of Group:: Process - 7 group members Goal of Group:: The goal of today's group was to check-in with client's mood, stressors, and positives, and review homework. Client Response/Progress/Benefit:: Active participant in group. Provided appropriate feedback. Emotion for today is anxious. Reports relationship conflicts increased anxiety since last session. Shared several poor interactions with BF in which pt percieved as being negative towards her. This resulted in negative thinking and catastrophizing. Also resulted in isolation. Able to reframe thinking during group and was able to understand that BF was perhaps seeking some time to decompress after work alone which led to arguement. Benefited from group feeback and support. Progress noted as she reports improving on awareness of mistaken beliefs and cognitive distortions. She struggles with implement thought-stopping w/o some assistance. Will continue in IOP to prevent decompensation, improve daily functioning, maintain safety, and decrease anxiety. Eye Contact:: Fair Motor Activity:: Restless Appearance:: Disheveled Speech:: Rambling Mood:: Anxious, Irritable, Depressed Affect:: Congruent Thoughts:: Linear, Logical, No evidence of hallucinations/delusions noted Staff Interventions:: Therapist used open-ended questions to elicit information about client's current stressors and mood state. Therapist was supportive by using active listening and reflection.
--- NOTE | 2018-05-08 15:14 | BH.SGPN ---
Service Group Progress Note - Session Psychotherapy Session #2 Date Open:: 05/08/18 - 7 group members Time Started:: 10:25 Time Stopped:: 11:15 Targeted Problem #:: 1 Type of Group:: Illness Management Goal of Group:: To increase understanding of components of a problem, learn strategies to solve a problem and rehearse problem solving skills. Client Response/Progress/Benefit:: Client responded well to session, active participant. Client appeared to connect with the quote sharing, we make problems with our thinking. Client reported she has a lot of problems that she needs to deal with, but she often feels overwhelmed and avoids them. Client helped the group identify and process the ABCDEs of problem solving, connecting most with writing out all the strategies and focusing on asking herself what can I do at this time? Client participated in the activity, using good communication and helped the group brainstorm strategies to achieve the goal. Client appeared to benefit from learning about the ABCDEs of problems solving and using in the moment coping skills. Progress noted as client reports reduced anxiety, but continues to report catastrophizing and negative thoughts that keep her stuck. Eye Contact:: Good Motor Activity:: Appropriate Appearance:: Casual Speech:: Appropriate Mood:: Euthymic Affect:: Full Thoughts:: Linear, Logical, No evidence of hallucinations/delusions noted Staff Interventions:: Therapist facilitated group discussion about problems and the underlying components of problems. Therapist educated group about various strategies to solving a problem and provided an example of each. Therapist led group in an experiential activity that required group members to use problem solving skills to work together, rehearsing problem-solving skills. Psychotherapy Session #3 Date Open:: 05/08/18 - 6 group members Time Started:: 11:25 Time Stopped:: 12:20 Targeted Problem #:: 1 Type of Group:: Functional Skills Development Goal of Group:: To identify steps to solving a personal problem and increase awareness to those barriers that impedes the problem solving process. Client Response/Progress/Benefit:: Client responded well to session, active in discussion. Client identified anxiety about everything as a problem she would like to overcome. Clients goal is to be less anxious and manage her anxiety better. Client identified problem-solving strategies including: going to group three times a week, challenge thoughts daily, tracking her mood, and reaching out to positive supports. Client shared her barriers are anxious thoughts and telling herself its too hard it wont work. Client appeared to benefit from identifying steps to overcome her current problem of anxiety. Client to continue IOP to prevent decompensation and increase mood stability. Eye Contact:: Good Motor Activity:: Appropriate Appearance:: Casual Speech:: Appropriate Mood:: Anxious Affect:: Constricted Thoughts:: Linear, Logical, No evidence of hallucinations/delusions noted Staff Interventions:: Therapist provided group members with a worksheet in which the group members were instructed to identify a problem and steps need to take to solve that problem. Then therapist instructed group members to identify those barriers that get in the way of solving the problem. Therapist led the processing of the activity. Therapist provided support by using active listening and providing feedback.
--- NOTE | 2018-05-08 15:18 | BH.SGPN_ITS ---
Service Group Progress Note - Session Psychotherapy Session #2 Date Open:: 05/08/18 - 7 group members Time Started:: 10:25 Time Stopped:: 11:15 Targeted Problem #:: 1 Type of Group:: Illness Management Goal of Group:: To increase understanding of components of a problem, learn strategies to solve a problem and rehearse problem solving skills. Client Response/Progress/Benefit:: Client responded well to session, active participant. Client appeared to connect with the quote sharing, ?we make problems with our thinking.? Client reported she has ?a lot of problems? that she needs to deal with, but she often feels overwhelmed and avoids them. Client helped the group identify and process the ABCDEs of problem solving, connecting most with writing out all the strategies and focusing on asking herself ?what can I do at this time?? Client participated in the activity, using good communication and helped the group brainstorm strategies to achieve the goal. Client appeared to benefit from learning about the ABCDEs of problems solving and using in the moment coping skills. Progress noted as client reports reduced anxiety, but continues to report catastrophizing and negative thoughts that keep her stuck. Eye Contact:: Good Motor Activity:: Appropriate Appearance:: Casual Speech:: Appropriate Mood:: Euthymic Affect:: Full Thoughts:: Linear, Logical, No evidence of hallucinations/delusions noted Staff Interventions:: Therapist facilitated group discussion about problems and the underlying components of problems. Therapist educated group about various strategies to solving a problem and provided an example of each. Therapist led group in an experiential activity that required group members to use problem solving skills to work together, rehearsing problem-solving skills. Psychotherapy Session #3 Date Open:: 05/08/18 - 6 group members Time Started:: :25 Time Stopped:: 12:20 Targeted Problem #:: 1 Type of Group:: Functional Skills Development Goal of Group:: To identify steps to solving a personal problem and increase awareness to those barriers that impedes the problem solving process. Client Response/Progress/Benefit:: Client responded well to session, active in discussion. Client identified ?anxiety about everything? as a problem she would like to overcome. Client?s goal is to be less anxious and manage her anxiety better. Client identified problem-solving strategies including: going to group three times a week, challenge thoughts daily, tracking her mood, and reaching out to positive supports. Client shared her barriers are anxious thoughts and telling herself ?it?s too hard it won?t work.? Client appeared to benefit from identifying steps to overcome her current problem of anxiety. Client to continue IOP to prevent decompensation and increase mood stability. Eye Contact:: Good Motor Activity:: Appropriate Appearance:: Casual Speech:: Appropriate Mood:: Anxious Affect:: Constricted Thoughts:: Linear, Logical, No evidence of hallucinations/delusions noted Staff Interventions:: Therapist provided group members with a worksheet in which the group members were instructed to identify a problem and steps need to take to solve that problem. Then therapist instructed group members to identify those barriers that get in the way of solving the problem. Therapist led the processing of the activity. Therapist provided support by using active listening and providing feedback.
--- NOTE | 2018-05-09 11:21 | BH.SGPN ---
Service Group Progress Note - Session Psychotherapy Session #1 Date Open:: 18 - 5 group members Time Started:: 09:00 Time Stopped:: 10:00 Targeted Problem #:: 1 Type of Group:: Process Goal of Group:: The goal of today's group was to check-in with client's mood, stressors, and positives, and introduce topic for the day. Client Response/Progress/Benefit:: Client responded well to session, active participant. Client reports feeling anxious today as client is worrying about her relationship with her boyfriend. Client shared her boyfriend told client he needed space in the evenings after work to destress, but client took it as he thinks I'm a burden and he will probably break up with me. Client stated she has been trying to challenge her cognitive distortions and remind herself of the evidence against her thoughts. Client expressed multiple pieces of evidence against her boyfriend breaking up with her and of client being a burden. Client was receptive to a male peer who provided a different perspective on the situation and helped client recognize the positive reasons why client's boyfriend may want alone time to destress. Client reports plan to go to a coffee shop for self-care today and to reduce anxiety. Client appeared to benefit from challenging cognitive distortions and identifying strategies to reduce anxiety. Progress noted as client reports utilizing healthy coping skills to manage symptoms, but continues to struggle with consistency in challenging thoughts. Client to continue IOP to prevent decompensation and improve functioning. Eye Contact:: Fair Motor Activity:: Restless Appearance:: Casual Speech:: Appropriate Mood:: Anxious Affect:: Congruent Thoughts:: Linear, Racing, No evidence of hallucinations/delusions noted Staff Interventions:: Therapist used open-ended questions to elicit information about client's current stressors and mood state. Therapist was supportive by using active listening and reflection.
--- NOTE | 2018-05-09 14:04 | BH.SGPN ---
Service Group Progress Note - Session Psychotherapy Session #2 Date Open:: 05/09/18 Time Started:: 10:09 Time Stopped:: 11:05 Targeted Problem #:: 1 Type of Group:: Illness Management - 5 participants Goal of Group:: The goal of group was to increase understanding of goals and goal setting benefits and practice a method of goal setting. Client Response/Progress/Benefit:: Client engaged in session and an active participant throughout. She did well to discuss with the group the importance of setting goals and some of the benefits setting and accomplishing small goals can have on mental health. CLient identified that by completing small goals we may becom more confident and willing to work on tackling larger goals. CLient benefited from reviewing SMART goal criteria and ways each step is important in creating a goal that is both attainable and working towards progressing in our [facility] goals. CLient showed progress in her ability to relate activity back to SMART goals setting criteria. SHe expressed that it is important to be flexible and realistic with what we are capable of when creating goals. CLient recommended continued IOP to maintain stability to work on further challenging distorted thinking patterns that may negatively impact mental health goal attainment. Eye Contact:: Fair Motor Activity:: Appropriate Appearance:: Casual Speech:: Appropriate Mood:: Anxious, Dysthymic Affect:: Constricted Thoughts:: Linear, Logical, No evidence of hallucinations/delusions noted Staff Interventions:: Therapist facilitated group discussion about goals, potential mental health benefits of setting and working towards achieving goals, and means for goal setting. Therapist taught group the acronym SMART (Specific, Measurable, Achievable, Realistic, Timely) as a tool to help with goal setting. Therapist led the group in an activity to be used as a method of practicing goal setting. Therapist provided the group with a small beach ball and explained their goal was to keep the ball in the air for as long as possible. Therapist guided the group through the SMART acronym as group was participating in activity Psychotherapy Session #3 Date Open:: 05/09/18 Time Started:: 11:13 Time Stopped:: 12:03 Targeted Problem #:: 1 Type of Group:: Functional Skills Development - 5 participants Goal of Group:: The goal of group was to identify a goal for the week, explore ways to make goal follow SMART goal setting guidelines, identify the potential barriers to achieving that set goal, and identify strategies to overcome barriers. Client Response/Progress/Benefit:: client again was well engaged and a positive participant. She did well to use the SMART goal criteria discussed in previous group as a guide for establishing her own mental health goals. CLient shared wanting to get an A in her summer course as she believes this will help with increasing self-confidence and reduce anxiety related to returning to school full-time in the fall. CLient benefitted from identifying potential barriers and brainstorming supports available. Client shared that like of time management and procrastination may be barriers. She did well to identify steps to overcoming these barriers and shared that setting specific times each day for doing homework and making a list of upcoming due dates would be most benefical in her succeeding. CLient recommended continued IOP to imrove stress management skills and continue to develop and implement healths symptoms management strategies. Eye Contact:: Fair Motor Activity:: Appropriate Appearance:: Casual Speech:: Appropriate Mood:: Anxious, Dysthymic Affect:: Constricted Thoughts:: Linear, Logical, No evidence of hallucinations/delusions noted Staff Interventions:: Therapist explained goal setting activity to group. Therapist provided each group member with a piece of paper and asked them to write down a goal they would like to accomplish over the weekend. Therapist then asked each member to draw a path to their goal and identify barriers that could potentially get in the way of their goal. Therapist led group in processing their goal maps and had them come up with strategies to overcome the barriers. Therapist provided support by using reflective listening.
--- NOTE | 2018-05-09 14:18 | BH.SGPN_ITS ---
Service Group Progress Note - Session Psychotherapy Session #2 Date Open:: 05/09/18 Time Started:: 10:09 Time Stopped:: 11:05 Targeted Problem #:: 1 Type of Group:: Illness Management - 5 participants Goal of Group:: The goal of group was to increase understanding of goals and goal setting benefits and practice a method of goal setting. Client Response/Progress/Benefit:: Client engaged in session and an active participant throughout. She did well to discuss with the group the importance of setting goals and some of the benefits setting and accomplishing small goals can have on mental health. CLient identified that by completing small goals we may becom more confident and willing to work on tackling larger goals. CLient benefited from reviewing SMART goal criteria and ways each step is important in creating a goal that is both attainable and working towards progressing in our [facility] goals. CLient showed progress in her ability to relate activity back to SMART goals setting criteria. SHe expressed that it is important to be flexible and realistic with what we are capable of when creating goals. CLient recommended continued IOP to maintain stability to work on further challenging distorted thinking patterns that may negatively impact mental health goal attainment. Eye Contact:: Fair Motor Activity:: Appropriate Appearance:: Casual Speech:: Appropriate Mood:: Anxious, Dysthymic Affect:: Constricted Thoughts:: Linear, Logical, No evidence of hallucinations/delusions noted Staff Interventions:: Therapist facilitated group discussion about goals, potential mental health benefits of setting and working towards achieving goals , and means for goal setting. Therapist taught group the acronym SMART (Specific , Measurable, Achievable, Realistic, Timely) as a tool to help with goal setting. Therapist led the group in an activity to be used as a method of practicing goal setting. Therapist provided the group with a small beach ball and explained their goal was to keep the ball in the air for as long as possible. Therapist guided the group through the SMART acronym as group was participating in activity Psychotherapy Session #3 Date Open:: 05/09/18 Time Started:: 11:13 Time Stopped:: 12:03 Targeted Problem #:: 1 Type of Group:: Functional Skills Development - 5 participants Goal of Group:: The goal of group was to identify a goal for the week, explore ways to make goal follow SMART goal setting guidelines, identify the potential barriers to achieving that set goal, and identify strategies to overcome barriers. Client Response/Progress/Benefit:: client again was well engaged and a positive participant. She did well to use the SMART goal criteria discussed in previous group as a guide for establishing her own mental health goals. CLient shared wanting to get an A in her summer course as she believes this will help with increasing self-confidence and reduce anxiety related to returning to school full-time in the fall. CLient benefitted from identifying potential barriers and brainstorming supports available. Client shared that like of time management and procrastination may be barriers. She did well to identify steps to overcoming these barriers and shared that setting specific times each day for doing homework and making a list of upcoming due dates would be most benefical in her succeeding. CLient recommended continued IOP to imrove stress management skills and continue to develop and implement healths symptoms management strategies. Eye Contact:: Fair Motor Activity:: Appropriate Appearance:: Casual Speech:: Appropriate Mood:: Anxious, Dysthymic Affect:: Constricted Thoughts:: Linear, Logical, No evidence of hallucinations/delusions noted Staff Interventions:: Therapist explained goal setting activity to group. Therapist provided each group member with a piece of paper and asked them to write down a goal they would like to accomplish over the weekend. Therapist then asked each member to draw a path to their goal and identify barriers that could potentially get in the way of their goal. Therapist led group in processing their goal maps and had them come up with strategies to overcome the barriers. Therapist provided support by using reflective listening.
--- NOTE | 2018-05-10 13:10 | BH.SGPN ---
Service Group Progress Note - Session Psychotherapy Session #2 Date Open:: 05/10/18 Time Started:: 10:30 Time Stopped:: 11:20 Targeted Problem #:: 1 Type of Group:: Illness Management Goal of Group:: To increase understanding of cognitive distortions, identify examples of when have had unhelpful thinking, and increase awareness of the impact cognitive distortions have on mental health. Client Response/Progress/Benefit:: Client contributed positively to discussion and listened attentively to others. Client reports she connected with the quote because she recognizes that oftentimes her thoughts create a situation of scenario that is typically negative and is not true. Client reported she could relate to many of the cognitive distortions. Client gave an example that when she gets mostly A's and B's on her schoolwork but one C she believes she has failed. Able to recognize this thought to be illogical because she has evidence to support that she has not failed. Client seemed to benefit from increasing awareness of cognitive distortions and impact distorted thoughts can have on progress. Eye Contact:: Good Motor Activity:: Appropriate Appearance:: Casual Speech:: Appropriate Mood:: Anxious Affect:: Congruent Thoughts:: Linear, Logical, No evidence of hallucinations/delusions noted Staff Interventions:: Therapist provided group members with a handout that listed ten cognitive distortions with examples. Therapist facilitated group discussion about cognitive distortions. Therapist led group members in an activity to help them understand the impact cognitive distortions can have on emotions and behavior. Therapist provided support by using active listening and providing feedback. Psychotherapy Session #3 Date Open:: 05/10/18 Time Started:: 11:30 Time Stopped:: 12:20 Targeted Problem #:: 1 Type of Group:: Functional Skills Development Goal of Group:: To identify ways of defeating cognitive distortions and rehearse defeating the identified cognitive distortion. Client Response/Progress/Benefit:: Client active participant as evidenced by her sharing her thoughts and feelings and working cooperatively with others. 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 Client recognizes this thought tends to keep her from engaging in coping skills and hobbies that she enjoys because there could be something that she might have to do. With assistance from peers client able to identify a new thought to be it is okay to take 20 minutes for something I enjoy. Client seemed to benefit from rehearsing identifying and challening distorted thought patterns. Progress noted with client showing increased awareness into negative and anxious thoughts. Eye Contact:: Good Motor Activity:: Appropriate Appearance:: Casual Speech:: Appropriate Mood:: Anxious Affect:: Congruent Thoughts:: Linear, Logical, No evidence of hallucinations/delusions noted Staff Interventions:: Therapist utilized an activity as a tool in helping clients connect the amount of effort one will need to put forth to defeat cognitive distortions. Therapist provided group members with a handout to use as an aid when trying to defeat their unhelpful thinking. Therapist processed the worksheet with group members, helping them reframe the cognitive distortions.
--- NOTE | 2018-05-10 14:33 | BH.SGPN ---
Service Group Progress Note - Session Psychotherapy Session #1 Date Open:: 05/10/18 Time Started:: 09:08 Time Stopped:: 10:18 Targeted Problem #:: 1 Type of Group:: Process - 7 participants Goal of Group:: The goal of today's group was to check-in with client's mood, stressors, and positives, review homework and introduce topic for the day. Client Response/Progress/Benefit:: Client reponded well to session and benefitted from verbalizing and working through current anxieties and distorted thinking patterns with the group. She discussed ongoing negative thinking surrounding a conversation with her boyfriend in which he asked client to give him some space for awhile. Client shared struggling with significant ruminationabut whether or not her was planning to breakup with her. She discussed fear about broaching the topic with him as she does not want to make matters worse or annoy him. CLient shared doing well to distract herself with other things last night so that she is not ruminating or tempted to contact her boyfriend out of lonliness. Client responded well to group support and advice. She did well to identify distorted thinking patterns associated with current thoughts and is displaying progress in her ability to challenge distortions. CLient recommended continue IOP to further improve consistency of thought challenging skills and explore healthy boundary setting and effective communication skills. Eye Contact:: Good Motor Activity:: Appropriate Appearance:: Casual Speech:: Appropriate Mood:: Anxious, Irritable Affect:: Congruent Thoughts:: Linear, Logical, No evidence of hallucinations/delusions noted Staff Interventions:: Therapist used open-ended questions to elicit information about client's current stressors and mood state. Therapist was supportive by using active listening and reflection.
--- NOTE | 2018-05-10 14:51 | BH.MDN ---
Multi-Disciplinary Note - Note 45-min Individual Time Started:: 12:22 Date: 05/10/18 Purpose of session/treatment goals addressed:: The purpose of this session was to address client's current stressors and negative thinking patterns. Another goal was to improve client's ability to cope with upcoming stressors set goals for the weekend, and discuss aftercare. Eye Contact:: Fair Motor Activity:: Restless Appearance:: Neat Speech:: Appropriate Mood:: Euthymic, Anxious Affect:: Congruent Thoughts:: Linear, Logical, No evidence of hallucinations/delusions noted Staff Interventions:: Therapist used open-ended and scaling questions to explore client's current stressors, symptoms, and use of coping skills. Therapist used the STOPP technique to help client challenge current negative thoughts. Therapist assisted client in breaking down current stressors and establishing strategies to reduce those stressors. Therapist used strengths perspective to empower client on changes and progress she has made. Therapist and client discussed discharge and aftercare options. Therapist gave client weekend challenges to promote self-care and socialization as well as a writing prompt to analysis the costs and benefits of accomplishing anxiety-provoking tasks. Client Response:: Client responded well to session, open to meeting with therapist. Client shared today's group on cognitive distortions was a good reminder as client has been having numerous distorted thoughts this week that she has been trying to challenge. Client shared some of them stick more so I have to remember to keep challenging them. Client recognizes that the more client challenges the thoughts the less she believes the distortions. Client reports belief she has made progress as client has been working on being more assertive, challenging cognitive distortions, and using self-care more frequently. Client shared she would like to continue being more social as client found it has been helping her mood. Client stated she would like to try to go to [employer] before she discharges from [facility]. Client expressed she continues to have high anxiety about school, her family, money, and finding job. Client was receptive to breaking down each stressor and identifying strategies to reduce them. Client shared there are things she should be doing for school, but has been avoiding because of anxiety. Client and therapist discussed the long-term costs and benefits of accomplishing these tasks versus avoiding them. Client able to identify strengths, supports, and coping skills she has that will help client overcome stressors and reported even though she is anxious it's manageable. Client was receptive to completing a mood tracker and journaling for homework. Client aware she has approximately 5 sessions left in IOP and shared it would be best for her to find a counselor at school rather than start and then have to stop quick with a therapist in [place]. Client and therapist to follow up with establishing outpatient counseling. Risks/Concerns:: No risks or concerns at this time. Client denies suicidal ideation, plan, and intent. Client reports being anxious, but excited about returning to school which demonstrates future orientation. Progress Toward Goals/Plan:: Client demonstrating progress towards treatment goals as shown by her report of reduced intensity of anxiety and improved ability to cope with symptoms. Client continues to report ongoing negative thinking and anxiety regarding money and returning to school. Client to work on homework of challenging cognitive distortions and managing anxiety for decision-making. Client returns to school at [employer] in mid-June and would like to find an outpatient counselor near her school for aftercare. Client to continue IOP to increase mood stability, challenge negative thoughts, and improve functioning. Time Stopped:: 13:10
--- NOTE | 2018-05-10 15:37 | BH.MDN_ITS ---
Multi-Disciplinary Note - Note 45-min Individual Time Started:: 12:22 Date: 05/10/18 Purpose of session/treatment goals addressed:: The purpose of this session was to address client's current stressors and negative thinking patterns. Another goal was to improve client's ability to cope with upcoming stressors set goals for the weekend, and discuss aftercare. Eye Contact:: Fair Motor Activity:: Restless Appearance:: Neat Speech:: Appropriate Mood:: Euthymic, Anxious Affect:: Congruent Thoughts:: Linear, Logical, No evidence of hallucinations/delusions noted Staff Interventions:: Therapist used open-ended and scaling questions to explore client's current stressors, symptoms, and use of coping skills. Therapist used the STOPP technique to help client challenge current negative thoughts. Therapist assisted client in breaking down current stressors and establishing strategies to reduce those stressors. Therapist used strengths perspective to empower client on changes and progress she has made. Therapist and client discussed discharge and aftercare options. Therapist gave client weekend challenges to promote self-care and socialization as well as a writing prompt to analysis the costs and benefits of accomplishing anxiety-provoking tasks. Client Response:: Client responded well to session, open to meeting with therapist. Client shared today's group on cognitive distortions was a good reminder as client has been having numerous distorted thoughts this week that she has been trying to challenge. Client shared some of them stick more so I have to remember to keep challenging them.? Client recognizes that the more client challenges the thoughts the less she believes the distortions. Client reports belief she has made progress as client has been working on being more assertive, challenging cognitive distortions, and using self-care more frequently. Client shared she would like to continue being more social as client found it has been helping her mood. Client stated she would like to try to go to [employer] before she discharges from [facility]. Client expressed she continues to have high anxiety about school, her family, money, and finding job. Client was receptive to breaking down each stressor and identifying strategies to reduce them. Client shared there are things she should be doing for school, but has been avoiding because of anxiety. Client and therapist discussed the long-term costs and benefits of accomplishing these tasks versus avoiding them. Client able to identify strengths, supports, and coping skills she has that will help client overcome stressors and reported even though she is anxious it's manageable. Client was receptive to completing a mood tracker and journaling for homework. Client aware she has approximately 5 sessions left in IOP and shared it would be best for her to find a counselor at school rather than start and then have to stop quick with a therapist in [place]. Client and therapist to follow up with establishing outpatient counseling. Risks/Concerns:: No risks or concerns at this time. Client denies suicidal ideation, plan, and intent. Client reports being anxious, but excited about returning to school which demonstrates future orientation. Progress Toward Goals/Plan:: Client demonstrating progress towards treatment goals as shown by her report of reduced intensity of anxiety and improved ability to cope with symptoms. Client continues to report ongoing negative thinking and anxiety regarding money and returning to school. Client to work on homework of challenging cognitive distortions and managing anxiety for decision- making. Client returns to school at [employer] in mid-June and would like to find an outpatient counselor near her school for aftercare. Client to continue IOP to increase mood stability, challenge negative thoughts, and improve functioning. Time Stopped:: 13:10
== END 2018-05-11 23:59 ==
LOC: BHIOP 09:00
PROVIDERS: Family Provider Student in an Organized Health Care Education/Training Program; PCP Student in an Organized Health Care Education/Training Program; Visit Provider Psychiatry & Neurology Psychiatry
DX: F41.1 Generalized anxiety disorder (principal); F32.9 Major depressive disorder, single episode, unspecified; E55.9 Vitamin D deficiency, unspecified; M79.7 Fibromyalgia; Z79.899 Other long term (current) drug therapy
CPT/HCPCS: H0035; 90834; 90837; 90853

== ENCOUNTER 2018-05-16 09:00 | Outpatient (RCR) | payer OTHER, BC, SELFPAY ==
[2018-05-12 01:03] VITALS: BP 96/71; PULSE 66; RESP 14
--- NOTE | 2018-05-16 10:10 | BH.SGPN.GN ---
Client Response/Progress/Benefit: [Client engaged and active participant throughout group session. Client reported there have been many situations that she has allowed her emotions to take control, which has resulted in increased problems and issues. Client shared she recognizes the importance of being able to think before she reacts, but notes this is something that is difficult to do when experiences intense emotions. When processing activity client reported she was frustrated at times, but used positive self-talk to help her regulate her emotions. Client seemed to benefit from increased awareness of impact emotions can have on ability to communicate effectively as well as impact response to emotion can have. Client showing progress with increased engagement and contributions throughout session. ] Eye Contact: [good] Motor Activity: [Restless - AEB client being fidgety with hands.] Appearance: [casually dressed] Speech: [appropriate] Mood: [Euthymic, irritable] Affect: [Congruent] Thoughts: [linear, logical, no evidence of delusions or hallucinations.]
--- NOTE | 2018-05-16 10:15 | BH.SGPN ---
Service Group Progress Note - Session Psychotherapy Session #1 Date Open:: 18 - 4 group members Time Started:: 09:05 Time Stopped:: 10:00 Targeted Problem #:: 1 Type of Group:: Process Goal of Group:: The goal of today's group was to check-in with client's mood, stressors, and positives, review homework and introduce topic for the day. Client Response/Progress/Benefit:: Client responded well to session, providing good insight to discussion. Client reports feeling anxious and on edge today after having a nightmare about her ex-boyfriend. Client reported belief the nightmare was triggered by seeing her ex-boyfriend's truck. Client shared the dream was so realistic that it has been hard for her to challenge her racing thoughts and reduce anxiety. The group provided client support and client used positive self-talk to challenge some of her distortions. Client discussed helpful versus unhelpful strategies to manage racing thoughts. Client shared she looked up her ex-boyfriend on social media which was not helpful, but she texted a support to further process the dream which was helpful. Client appeared to benefit from gaining support from the group and challenging cognitive distortions. Client seems to be progressing as client reports improved ability to cope with stressors, less catastrophizing, and better management of bumps in the road, but can continue to benefit from IOP to challenging negative thinking and increase emotional regulation. Eye Contact:: Good Motor Activity:: Restless Appearance:: Casual Speech:: Rapid Mood:: Anxious Affect:: Congruent Thoughts:: Racing, No evidence of hallucinations/delusions noted Staff Interventions:: Therapist used open-ended questions to elicit information about client's current stressors and mood state. Therapist was supportive by using active listening and reflection.
--- NOTE | 2018-05-16 11:15 | BH.SGPN.GN ---
Behaviors/Verbalizations/Mental Status: [] Pt eye contact good, casually dressed, motor activity restless, speech normal rate and tone, mood euthymic, congruent affect, thoughts linear and intact, no evidence of delusions or hallucinations. Client Response/Progress/Benefit: [] Pt engaged and active throughout session, as shown by contributing to discussion. Pt shared she could really relate to the different zones of alertness, reporting I basically live in the low state of alertness zone; referring to her depression. Pt able to connect other emotions to the various zones of alertness. Pt shared she is going to focus on being more aware of her emotions throughout the day so she can utilize a coping skill that would be best for her current emotion. Pt seemed to benefit from identifying different coping skills for each of the 4 zones of alertness.
--- NOTE | 2018-05-16 14:44 | BH.MDN_ITS ---
Multi-Disciplinary Note - Note 30-min Individual Time Started:: 12:20 Date: 05/16/18 Purpose of session/treatment goals addressed:: The purpose of this session was to work on goal 1 objective 1 and goal 2 objective 2 of client's treatment plan. Another goal was to discuss aftercare and the Personal Bill of Rights worksheet. Eye Contact:: Good Motor Activity:: Restless Appearance:: Casual Speech:: Appropriate Mood:: Euthymic, Anxious Affect:: Congruent Thoughts:: Linear, Logical, No evidence of hallucinations/delusions noted Staff Interventions:: Therapist used active listening and open-ended questions to explore client's current stressors, cognitive distortions, and patterns of coping. Therapist praised client for her use of healthy coping strategies over the past week. Therapist provided a safe place for client to process recent triggers and ruminating thoughts causing client to feel on edge. Therapist discussed healthy versus unhealthy coping strategies to help client break the anxiety cycle and improve mood. Therapist assisted client in reframing negative thoughts and provided client a Personal Bill of Rights worksheet to help promote client positive self-talk and empowerment. Therapist discussed aftercare plans with client. Client Response:: Client responded well to session, open to meeting with therapist. Client reported this morning her anxiety was 8/10 as client saw her ex-boyfriends truck which triggered a nightmare and anxiety. Client stated, it felt so real it was really hard to convince myself I'm okay. Client and therapist discussed healthy versus unhealthy coping when feeling anxious. Client shared looking her ex-boyfriend up on social media was unhealthy as it made client more anxious and go down the rabbit hole. Client reported she texted a friend so client could talk about what happen and this calmed client by bringing me back to reality. Client able to reframe current cognitive distortions during session. Client shared overall, she feels less depressed and although client reports daily nervousness, client states she is better able to manage her anxiety. Client stated she has not been catastrophizing, personalizing, or panicking as much which demonstrates progress. Client was receptive to the Personal Bill of Rights, sharing, it helps her realize the things she does have a right to such as self-care, setting boundaries, and making mistakes. Client identified several rights she continues to struggle with and was open to working on improving those areas. Client and therapist discussed strategies to use today to reduce anxiety including self-care at the pool and checking off items from her school to do list. Client reports feeling ready to discharge in two weeks and is willing to go to [employer] [place]. Risks/Concerns:: No risks or concerns to document at this time. Client denies suicidal ideation, plan, and intent as of 05/16/18. Client reports improved mood and denies self-harming behaviors. Progress Toward Goals/Plan:: Client demonstrating progress towards treatment goals as shown by her report of reduced intensity of anxiety and barely any depression. Per client report, client has improved with regulating her emotions , not personalizing, and challenging negative thoughts. Client continues to struggle with some avoidance behaviors brought on by anxiety as well as reframing cognitive distortions on a consistent basis. Client to continue IOP to promote gains and to maintain mood stability. Client to discharge the week of the May 27. Time Stopped:: 12:50
--- NOTE | 2018-05-17 09:05 | BH.SGPN.GN ---
Behaviors/Verbalizations/Mental Status: [] Pt eye contact good, casually dressed, motor activity restless, speech normal rate and tone, mood anxious, congruent affect, thoughts linear and intact, no evidence of delusions or hallucinations. Client Response/Progress/Benefit: []Client reported yesterday was an overall good day until the evening. Client shared when she was home in the evening she started to get paranoid that her ex-boyfriend was coming to get her, states the dream she had the night before about him has triggered increased worry and anxiety. Client admitted she hasn't taken her medications in at least two days, which she recognizes doesn't help her. Client agreeable to take medication today. Client shared despite waking up late this morning she feels calm and excited for the fireworks this weekend. Client progress could be hindered by continued medication noncompliance. Client encouraged to take medication consistently, therapist educated client on potential consequences of not taking medications consistently.
--- NOTE | 2018-05-17 10:15 | BH.SGPN.GN ---
Behaviors/Verbalizations/Mental Status: []Client alert and oriented, good eye contact, motor activity normal, speech within normal limits, dress appropriate, mood euthymic, affect full, logical, linear thoughts, no signs of hallucinations or delusions. Client Response/Progress/Benefit: []Client responded well to session, active participant and contributing to discussion. Client connected with the quote sharing she has taken the easy path before because of anxiety, but currently client reports belief she is taking the hard path by taking summer classes and getting back to school. Client shared pitfalls are setbacks and can keep a person stuck in depression or anxiety. Client stated negative thinking, self-sabotage, and only paying attention to the good can make a person more vulnerable to pitfalls. Client participated in the activity and processed with peers that self-awareness, managing emotions, and communicating with supports are important for avoiding pitfalls. Client stated, when we let our emotions control us we had less control of avoiding the pitfalls. Client appeared to benefit from increasing awareness of pitfalls and how they impact mental health. Progress noted as shown by client's report of working on her fear ladder and using thought challenging, but continues to struggle with managing anxiety, avoidance, and catastrophizing.
--- NOTE | 2018-05-17 11:15 | BH.SGPN.GN ---
Behaviors/Verbalizations/Mental Status: []Client alert and oriented, good eye contact, motor activity normal, speech within normal limits, dress appropriate, mood euthymic, anxious, affect congruent, logical, linear thoughts, no signs of hallucinations or delusions. Client Response/Progress/Benefit: []Client responded well to session, active participant and able to identify strategies. Client identified her personal pitfalls as being too empathetic, avoiding responsibilities and conflict, anxiety, and negative thinking. Client reported when she experiences her pitfalls she feels overwhelmed and panicked. Client helped the group identify strategies to prevent pitfalls such as self-awareness, deep breathing and calming strategies, reflecting on positives, focusing on goals, and reminding herself the positives of choosing the hard path. Client appeared to benefit from gaining awareness of her personal pitfalls, so client can use coping strategies to avoid and overcome future pitfalls. Client to continue IOP to prevent decompensation and increase ability to manage anxiety symptoms.
--- NOTE | 2018-05-22 09:05 | BH.SGPN.GN ---
Behaviors/Verbalizations/Mental Status: [] Client remained alert and oriented in session. She was an active participant and maintained consistent eye contact throughout. Client motor activity appeared restless as evidenced by her shaking her leg and fidgeting with the plan during the duration of discussion. Appearance was clean, grooming and hygiene appropriate. Speech remained within normal limits. Mood was euthymic and anxious, expressed as nervous but feeling even, affect congruent with mood. Thoughts remained linear and logical, devoid of any present hallucination or delusions. Therapist reviewed clients symptom tracker to assess for intensity of mental health symptoms and identify risk for suicide. No signs of suicidal ideation, plan, or intent to date. Client Response/Progress/Benefit: [] Client responded well to session, remained engaged throughout. She did well to provide input as fellow participants discussed with the group and openly shared her own thoughts, feelings, and opinions. Client discussed speaking with her mother and grandmother about returning to school and shared being pleasantly surprised by the response. She went on to explain that her grandmother had indicated feeling more okay about client returning to college, which has helped to reduce some of clients anxieties regarding such. Client shared that she has been reaching out to her aunt via text as an additional support to gain insights regarding ways to manage her anxiety and vent frustrations, indicated this has been helpful in improving her ability to manage current symptoms. She shared some increased anxiety today due to her boyfriend leaving for a trip to [place] in which he has to fly. Described having anxiety about his plane ride but was open to encouragement and suggestions provided by the group. Additionally shared increased anxiety regarding her current financial situation as she is waiting for her patient financial rep letter in order to make a deposit on her apartment. Client displaying progress in her ability to challenge distorted thinking patterns and ruminations and is more successfully managing symptoms of anxiety. Recommended continued IOP treatment in order to continue to promote symptom management and prevent decompensation.
--- NOTE | 2018-05-22 10:13 | BH.SGPN.GN ---
Behaviors/Verbalizations/Mental Status: []Client alert and oriented, casually dressed. Speech within normal limits. Good eye contact. Motor activity appropriate. Mood anxious, affect constricted. Thoughts linear and logical, no signs of hallucinations or delusions. Client Response/Progress/Benefit: []Client responded well to session, active participant. Client appeared to connect with the quote sharing, other people and ourselves can keep us from getting to where we want to be. Client created a visual representation of her current mental wellness reality as client is half way to where I want to be, but clients family is trying to hold her back and causing client to second-guess her discussions. 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 Client reported her desired reality is to feel more confident with her decision to return to school and accomplishing the tasks she has been avoiding. Client stated her desired reality is so close, but theres so many obstacles. Client reflected on when she first started IOP expressing she has improved and made strides to get her closer to her desired reality. Client appeared to benefit from recognizing the progress she has made and the barriers that keep client from achieving her desired reality. Client seems to be progressing as shown by her self-awareness of barriers and coping skills, but continues to struggle with avoidance and negative thinking. Client to continue IOP to prevent decompensation and promote mood stability.
--- NOTE | 2018-05-22 11:15 | BH.SGPN.GN ---
Behaviors/Verbalizations/Mental Status: []Client alert and oriented, neatly dressed and groomed. Speech within normal limits. Good eye contact. Motor activity restless. Mood anxious, affect constricted. Thoughts linear and logical, no signs of hallucinations or delusions. Client Response/Progress/Benefit: []Client responded well to session, participating in the activity and providing good insight to discussion. Client identified obstacles keeping client from achieving mental wellness to be avoidance, fibromyalgia, family, anxiety, and feeling overwhelmed. Client did well in the activity to use supports and problem-solve strategies to overcome or reduce her personal barriers and the others for others in the group. Client reported overcoming obstacles in not as hard as we make it out to be. Client created a list of strategies to overcome her barriers such as using deep breathing, mindfulness, challenging catastrophizing thoughts, and reminding herself of benefits of taking action and not avoiding. Client appeared to benefit from using in the moment problem-solving strategies to overcome barriers. Progress noted as client reports increased confidence in coping skill implementation, but continues to struggle with avoidance.
--- NOTE | 2018-05-22 13:57 | BH.MDN ---
Multi-Disciplinary Note - Note 30-min Individual Time Started:: 12:20 Date: 05/22/18 Purpose of session/treatment goals addressed:: The purpose of this session was to address client's avoidance behaviors and create steps to reduce anxiety and help client overcome the barrier of avoidance. Another goal was to discuss aftercare and discharge. Eye Contact:: Good Motor Activity:: Restless Appearance:: Casual Speech:: Appropriate Mood:: Anxious Affect:: Constricted Thoughts:: Racing, No evidence of hallucinations/delusions noted Staff Interventions:: Therapist used open-ended questions to explore client's current stressors, symptoms, and generalization of coping skills. Therapist addressed client's avoidance behaviors and helped client gain insight to the consequences of ongoing avoidance. Therapist assisted client in identifying steps and strategies to reduce anxiety, overcome barriers, and accomplish the tasks client has been avoiding. Therapist helped client prioritize tasks she has been avoiding and gently challenged client to look at the benefits of action versus the consequences of avoidance. Therapist provided emotional support, aftercare options close to client's college, and discussed discharge with client. Client Response:: Client responded well to session, open to meeting with therapist. Client shared overall she has seen progress, but the current stressor of returning to school in a month and the realization client has less time to accomplish things she has been avoiding has led to increased anxiety symptoms. Client shared she has been avoiding responsibility because of anxiety and as a result client has fallen behind in her summer class, not signed her lease, and has not turned in her marketing financial analyst. Client able to recognize that it's never as bad as I think I just have to do it but continues to struggle with following through. Client receptive to prioritizing the tasks she has been avoiding identifying signing her lease, submitting marketing financial analyst, and catching up on her summer class as the most important to finish. Client shared finishing these things this week would bring relief, reduce anxiety, and help her be more optimistic. Client broke down each task, identifying what would be needed to accomplish it. Then client selected the marketing financial analyst to face first as it was the easiest to start and brought the biggest reward. Client stated she feels worried about leaving IOP, but after creating a plan for aftercare with therapist client reported her anxiety has reduced. Risks/Concerns:: Client denies suicidal ideation, plan, and intent as of 05/22/18. Client reports even though the process of returning to school is stressful, client is looking forward to going back to school in June which demonstrates future orientation. Progress Toward Goals/Plan:: Client making progress towards treatment goals as evidenced by her report of reduced mental health symptoms and increased use of healthy coping skills. However, client continues to report ongoing avoidance behaviors in regard to school that exacerbate anxiety and make client feel overwhelmed. Client shared I feel ready, but not ready to discharge as client feels more confident in her skills, but has the upcoming stressor of returning to school. Client's last day was planned for next week, but due to upcoming stressors and exacerbated anxiety, this therapist will discuss an extension of treatment with the IOP treatment team. Client to continue IOP next week to prevent decompensation and promote mood stability. Time Stopped:: 12:50
--- NOTE | 2018-05-22 14:24 | BH.MDN_ITS ---
Multi-Disciplinary Note - Note 30-min Individual Time Started:: 12:20 Date: 05/22/18 Purpose of session/treatment goals addressed:: The purpose of this session was to address client's avoidance behaviors and create steps to reduce anxiety and help client overcome the barrier of avoidance. Another goal was to discuss aftercare and discharge. Eye Contact:: Good Motor Activity:: Restless Appearance:: Casual Speech:: Appropriate Mood:: Anxious Affect:: Constricted Thoughts:: Racing, No evidence of hallucinations/delusions noted Staff Interventions:: Therapist used open-ended questions to explore client's current stressors, symptoms, and generalization of coping skills. Therapist addressed client's avoidance behaviors and helped client gain insight to the consequences of ongoing avoidance. Therapist assisted client in identifying steps and strategies to reduce anxiety, overcome barriers, and accomplish the tasks client has been avoiding. Therapist helped client prioritize tasks she has been avoiding and gently challenged client to look at the benefits of action versus the consequences of avoidance. Therapist provided emotional support, aftercare options close to client's college, and discussed discharge with client. Client Response:: Client responded well to session, open to meeting with therapist. Client shared overall she has seen progress, but the current stressor of returning to school in a month and the realization client has less time to accomplish things she has been avoiding has led to increased anxiety symptoms. 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 Client able to recognize that it's never as bad as I think I just have to do it but continues to struggle with following through. Client receptive to prioritizing the tasks she has been avoiding identifying signing her lease, submitting financial sales representative, and catching up on her summer class as the most important to finish. Client shared finishing these things this week would bring relief, reduce anxiety, and help her be more optimistic. Client broke down each task, identifying what would be needed to accomplish it. Then client selected the financial sales representative to face first as it was the easiest to start and brought the biggest reward. Client stated she feels worried about leaving IOP, but after creating a plan for aftercare with therapist client reported her anxiety has reduced. Risks/Concerns:: Client denies suicidal ideation, plan, and intent as of . Client reports even though the process of returning to school is stressful, client is looking forward to going back to school in June which demonstrates future orientation. Progress Toward Goals/Plan:: Client making progress towards treatment goals as evidenced by her report of reduced mental health symptoms and increased use of healthy coping skills. However, client continues to report ongoing avoidance behaviors in regard to school that exacerbate anxiety and make client feel overwhelmed. Client shared I feel ready, but not ready to discharge as client feels more confident in her skills, but has the upcoming stressor of returning to school. Client's last day was planned for next week, but due to upcoming stressors and exacerbated anxiety, this therapist will discuss an extension of treatment with the IOP treatment team. Client to continue IOP next week to prevent decompensation and promote mood stability. Time Stopped:: 12:50
--- NOTE | 2018-05-31 10:24 | BH.MDN_ITS ---
Multi-Disciplinary Note - Note 45-min Individual Time Started:: 09:20 Date: 05/31/18 Purpose of session/treatment goals addressed:: The purpose of this session was to address client's current stressors, symptoms, and negative thinking patterns. Another goal was to create a care plan to provide a concrete plan for managing symptoms and help promote coping skill maintenance. Other topics included problem-solving and discharge. Eye Contact:: Fair - looking at the ceiling Motor Activity:: Restless Appearance:: Casual Speech:: Rapid Mood:: Euthymic, Anxious Affect:: Congruent Thoughts:: Linear, Logical, No evidence of hallucinations/delusions noted Staff Interventions:: Therapist used open-ended and scaling questions to explore client's current stressors, symptoms, and negative thinking patterns. Therapist used a cost benefit analysis to help client process current stressors , challenge cognitive distortions, and identify internal and external supports. Therapist assisted client in completing her care plan to promote maintenance. Therapist praised client for accomplishing her weekly personal goals. Therapist discussed discharge, provided outpatient aftercare options, and gently challenged client on self-doubt and procrastination. Client Response:: Client responded well to session, receptive to meeting with therapist. Client reported she feels actually good after overcoming stressors discussed last week. Client shared her negative thinking was getting bad and at one-point client thought she may not be able to return to school. Client reported obviously things worked out and client has accomplished her goals to reduce stressors. Client stated she continues to worry about moving to school and working while in school. Client receptive to using a cost benefit analysis to provide a visual of the negative forces and positive forces of her stressors. After completing the list, client recognized that both stressors have more positive forces than negatives which client shared reduced her anxiety about the situation. Client shared she has a job interview next week which client is both excited and worried about as client reported what if i can 't work and do school like last time. Client challenged this thought and reframed it to I'm different, my classes are better, and I actually feel ready. Client receptive to completing a personal care plan, sharing it will be helpful to have a concrete plan with her that includes coping skills, self-talk , and support people. Client and therapist discussed discharge and client reported belief she is ready to discharge next week. Client stated, she feels like her anxiety levels are more livable rather than unbearable on a daily basis. Risks/Concerns:: No risks or concerns to document at this time. Client denies suicidal ideation, plan, and intent as of 05/31/18. Client shared being excited to return to school which demonstrates future orientation. Progress Toward Goals/Plan:: Client demonstrating progress towards treatment goals as evidenced by her report of improved mood, reduced intensity and duration of anxiety, and generalization of healthy coping skills. Client also seems to be progressing in improved functioning as shown by her report of an upcoming job interview on 06/05/18. Client continues to endorse ruminations and some avoidance behaviors, but self-reports increased ability to manage symptoms. Client and therapist discussed discharge, client to discharge next 06/07/18. Time Stopped:: 10:02
--- NOTE | 2018-05-31 11:20 | BH.SGPN.GN ---
Behaviors/Verbalizations/Mental Status: [] Pt eye contact fair, casually dressed, motor activity restless, speech normal rate and tone, mood anxious, congruent affect, thoughts linear and logical, no evidence of delusions or hallucinations. Client Response/Progress/Benefit: [] Client contributed to discussion and listened attentively to others. Client identify her positive forces to include: Positive support people, having future plans for her life, healthy coping skills, and a positive outlook. Client reported her negative forces to include: Family, fibromyalgia, anxiety, procrastination, and avoidance avoidance. Client reported she is feeling a lot more stable compared to when she first started IOP program however is being cautious and aware of her emotions and moods. Client seemed benefit from increased awareness of her positive forces as well as thinking of strategies and steps she can take to help her improve and maintain her stability. Client to continue IOP level of care to decrease anxiety, maintain gains and prevent decompensation. Narrative Note: []
--- NOTE | 2018-05-31 12:15 | PCM.PN.BLA ---
Progress Note Patient seen in follow-up for generalized anxiety disorder F 41.1, depressive disorder unspecified, vitamin D deficiency. History is been obtained per interview with patient, discussion with staff, review of chart. Case discussed with treatment team. Chief complaint anxiety/depression Interim history Symptoms overall improved within the past month. Mild depressive symptoms wax and wane and are generally situational. Reports some depression over the weekend associated with family discord. Describes family as overwhelming. Managed anxiety and depression by reaching out to friend. Feels coping skills gained through IOP effective. Forward thinking. Planning to return to [employer] in June. Looking forward to a job interview on Sunday. Moderate ruminative anxiety regarding physical limitations of fibromyalgia affecting work. No suicidal or homicidal ideation at times consistent with psychosis. Sleeping from 11 PM to 9 AM. Appetite normal. Denies nausea vomiting or diarrhea. Denies ingestion of alcohol or use of illicit drugs. Denies ingestion of caffeine. TSH within normal limits within the past 6 months. Complaint of 15 pound weight gain since October. Mental status exam Alert and oriented . No acute distress. Ambulatory with normal gait and station. Appears stated age. Casually dressed and groomed. Appropriate hygiene. Cooperative with interview. Good eye contact. No psychomotor agitation or retardation. Mood depressed. Affect congruent. Speech is clear and with regular rate and rhythm. Language fluent. Thought process organized. Associations logical. No suicidal or homicidal ideation related or detected. No symptoms consistent with psychosis noted or detected. Immediate recent and remote memory grossly intact. Attention and concentration are fair. Estimated intelligence and fund of knowledge average. Judgment and insight improved. Diagnosis Generalized anxiety disorder 41.1 Depressive disorder unspecified Vitamin D deficiency Fibromyalgia Plan Continue IOP as the structured setting is necessary to maintain gains and prevent decompensation. Focus on relapse prevention. Risks benefits alternatives of medications discussed with patient. Patient acknowledges understanding. Continue Cymbalta 60 mg daily. Continue vitamin D supplement. Encouraged to establish with outpatient psychiatric providers for when IOP complete. 16 minutes of Insight oriented psychotherapy provided including cope ahead skills. Patient acknowledges understanding and is in agreement with plan. Feels able to maintain safety. Agrees to seek help or emergency care feeling unsafe to self or others.
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
--- NOTE | 2018-06-07 09:10 | BH.IGGP_ITS ---
Aftercare Plan - Demographics Treatment End Date:: 06/07/18 Psychiatrist:: Garima Encinas Psychiatrist Office #:: [phone] [facility] Therapist:: Ambar Lara Therapist Phone #:: [phone] - Medications Home Medications: Home Medications Cholecalciferol (Vitamin D3) [Vitamin D3] 2,000 unit PO DAILY 10/27/17 Duloxetine Hcl [Cymbalta] 60 mg PO BREAKFAST 10/27/17 Levonorgestrel [Mirena] 1 each IY X1 10/27/17 Lorazepam [Ativan] 0.5 mg PO DAILY PRN PRN 04/05/18 - Plan Details Progress/Aftercare Plan Details:: You have shown progress with managing your anxiety and using healthy coping skills learned in [facility]. You have worked on challenging negative thoughts, using calming strategies, using positive self- talk, and working on tackling situations that make you feel anxious. You recognize that you will always have some anxiety, but you shared having increased confidence in managing your symptoms. You have improved with identifying cognitive distortions and using your vieira mind to challenge and reframe irrational, catastrophizing thoughts. You have gained confidence in recognizing your values and making decisions to support those values. You have increased awareness of your warning signs, triggers, and heathy versus unhealthy coping skills. You have also shown progress with communicating to supports when the negative thinking becomes too overwhelming. Strategies for Success:: 1. SELF-TALK! talk yourself through it when you are having negative thoughts, remind yourself of your strengths. 2. Problem-solve strategies, you have skills and know lots of solutions! 3. Take those meds consistently! set reminders or keep them where you won't forget. 4. accountability- use that senior production planner and reminder yourself things will work out! 5. TALK TALK TALK with your positive supports. Release and process the emotions! 6. Avoid Avoiding! Prioritize, make a plan, and tackle those stressors. 7. Challenge the negative thoughts daily, look at the evidence for and against. 8. Remember the stressors are not going to last forever! 9. Be compassionate with yourself! 10. Keep working hard! And remember your progress at [facility]! - Appointments Appointments/Referrals to Other Services:: 1. [facility] outpatient counseling, appointment July 01 at 9:00am 2. Follow up with Dr. Ortega k 12 school professional starts for medication and medical needs.
--- NOTE | 2018-06-07 09:23 | BH.DS_ITS ---
Discharge Summary - Demographics Date of Admission:: 04/02/18 Discharge Date: 06/07/17 Presenting Problems at Admission:: At admission, client reports a long-standing history of anxiety since childhood. Client?s symptoms became worse in January associated with academic stress and a suicide on campus. At admission, client endorsed depressed mood with negative self-judging, anhedonia, and passive thoughts of suicide. Client also endorsed ruminative anxiety about multiple issues including academic performance and about upsetting others and setting boundaries. Client shared she had panic attacks once per week lasting about a half hour in which she had heart palpitations and shortness of breath. Client reported her symptoms were impacting her ability to function at her baseline as client's increased avoidance behaviors, negative thinking, and rumination that prevented client from working. Client reported belief her symptoms also impacted her relationships with family and negatively impacted her schooling. Discharge Diagnoses:: Generalized anxiety disorder F41.1; Depressive disorder unspecified. Reason for Discharge:: Client has demonstrated progress with increasing mood stability, reducing anxiety, and improving functioning and has met her treatment goals. At discharge client reported increase ability to manage symptoms through use of self-talk, thought challenging, and calming strategies. Client these reasons client no longer meets criteria for [facility] level of care. - Treatment Progress During Treatment & Response: Client accomplished her treatment goals as evidenced by her reduced DSM-5 cross-cutting measure scores for anxiety and depression. At admission client scored 5 out of 8 for depression and at discharge client scored 4 out of 8. Additionally, client scored 10 out of 12 for anxiety on the DSM-5 crossing cutting symptom measure at admission, and at discharge scored 5 out of 12. Client?s overall total DSM-5 cross-cutting score went from 39 at admission to a 25 at discharge. Client also accomplished her treatment objectives as evidenced by her ability to identify triggers for negative self-talk, panic, and rumination and her report of implementing thought challenging, deep breathing, and positive self-talk to manage these symptoms. Client reported increased motivation, reduced anhedonia, and declined suicidal ideation or self-harming at discharge. Client also appeared to increase functioning and return to her baseline per client's report of getting a job on campus and reducing avoidance behaviors. Client appeared to respond well to treatment as shown by her consistent attendance and positive engagement in group and individual sessions. Client missed two scheduled group days, but was overall prompt and an active participant. Client was receptive in individual session and reported talking about and processing her stressors was helpful to reduce anxiety. Issues Still to be Addressed:: Client has demonstrated progress with increasing emotional regulation skills and reducing intensity of mental health symptoms, but can continue to benefit from ongoing work on challenging cognitive distortions and negative self-talk. Client reported ongoing struggles with avoidance and procrastination and there is a concern post discharge client will return to avoidance once client's class load increases. Client can also benefit from reinforcement of healthy coping skills, boundary setting, and prioritizing stressors. Discharge Recommendations/Instructions:: Client shared it would be more beneficial for her to see a therapist at [employer] as client is returning to the campus for the new school year. Client recommended to follow up with outpatient counseling at [facility] in [place]. Client's intake appointment is 07/01/18 at 9:00a.m. Client also recommended to follow up with her PCP, Dr. Ortega, for medication management and medical needs. Client stated she does not have an appointment scheduled, but reported she will see Dr. Ortega before returning to school. Discharge Handout: Complete Discharge Handout with client on aftercare options and continuity of care.
--- NOTE | 2018-06-07 10:15 | BH.SGPN.GN ---
Behaviors/Verbalizations/Mental Status: []Client alert and oriented, neatly dressed and groomed. Eye contact good. Motor activity appropriate. Speech within normal limits. Affect constricted, mood euthymic. Thoughts linear, logical, no signs of hallucinations or delusions Client Response/Progress/Benefit: []Client appeared to respond well to session, active participant. Client connected with the quote sharing she has seen progress with her ability to challenge irrational thoughts which helps client manage stress. Client discussed the impacts of stress emotionally, physically, mentally, and behaviorally. Client stated the mental impacts of stress impact client the most. Client identified school, family, money, and relationships as current stressors in her life. Client reported when she does not manage stress she has increased negative thinking, crying spells, and panic attacks. Client reflected on her stress now compared to at the beginning of IOP. Client stated, my jar isnt overflowing and some of the stressors are actually good. Client appeared to benefit from identifying current stressors and reflecting on progress. Progress noted as evidenced by clients report of increased stress management skills.
--- NOTE | 2018-06-07 11:20 | BH.SGPN.GN ---
Behaviors/Verbalizations/Mental Status: []Client alert and oriented, neatly dressed and groomed. Eye contact good. Motor activity appropriate. Speech within normal limits. Affect congruent, mood euthymic. Thoughts linear, logical, no signs of hallucinations or delusions. Client Response/Progress/Benefit: []Client responded well to session, contributing to discussion and activity. Client identified stressors in her control such as school, money, her relationship, and her mental health. Client stated it helps her feel less stressed when she focuses on what is in her control. Client encouraged peers and provided ideas to help the group during the activity. Client helped peers develop strategies for reducing stress including self-care, accepting some stress will not disappear, and challenging negative thoughts. Client appeared to benefit from gaining additional strategies to manage stress. Client to discharge from [facility] today as she has demonstrated progress with reducing mental health symptoms.
--- NOTE | 2018-06-07 14:23 | BH.MDN ---
Multi-Disciplinary Note - Note 45-min Individual Time Started:: 12:25 Date: 06/07/18 Purpose of session/treatment goals addressed:: The purpose of this session was to review client's progress, provide closure to treatment, and review strategies that will promote mood stability and gains made in IOP. Another goal was to discuss aftercare and discharge recommendations. Eye Contact:: Good Motor Activity:: Appropriate Appearance:: Casual Speech:: Appropriate Mood:: Euthymic, Anxious Affect:: Congruent Thoughts:: Linear, Logical, No evidence of hallucinations/delusions noted Staff Interventions:: Therapist used open-ended questions to explore client's thoughts on personal progress. Therapist reviewed strategies, warning signs, and coping skills with client to promote gains and prevent setbacks. Therapist discussed aftercare plan with client and used strengths-perspective to empower client on the goals client accomplished. Therapist helped client schedule an intake appointment with [facility] in [place]. Therapist gave client a quote collage for closure and had client complete the IOP surveys. Client Response:: Client responded well to session, open to meeting with therapist. Client shared she has recognized progress in herself from day one in IOP to discharge. Client shared she has improved her ability to manage anxiety through thought challenging, self-talk, and talking with supports. Client reported having a recent stressor that in the past would have made me go into a total breakdown, but I actually handled it and it felt good. Client stated she continues to have worries and stress about school, family, and relationships, but client reported belief she can manage those things better now. Client identified strategies to promote gains and emotional regulation. Client's strategies included: thought challenging by looking at the evidence, positive self-talk, avoiding avoidance behaviors, talking with supports, taking medication consistently, and problem-solving stressors. Client and therapist called [facility] to schedule an intake appointment for outpatient counseling. Risks/Concerns:: No risks or concerns to document at this time. Client denies suicidal ideation, plan, and intent as of 06/07/18. Client reports looking forward to school and shared she is excited about starting her new job which demonstrates future orientation. Progress Toward Goals/Plan:: Client made progress towards treatment goals as evidenced by her reduced DSM-5 cross-cutting measure score for anxiety and report of increased self-confidence. At discharge client reported reduced panic, depression, and increased ability to manage emotions. Client also improved functioning as evidenced by her report of getting a job and feeling confident to move back to school. Client to discharge from [facility] and follow up with [facility] in [place] for outpatient counseling. Client wanted to find a therapist close to [employer] as client attends school there. Client's intake appointment is 07/01/18. Time Stopped:: 13:15
--- NOTE | 2018-06-07 14:52 | BH.MDN_ITS ---
Multi-Disciplinary Note - Note 45-min Individual Time Started:: 12:25 Date: 06/07/18 Purpose of session/treatment goals addressed:: The purpose of this session was to review client's progress, provide closure to treatment, and review strategies that will promote mood stability and gains made in IOP. Another goal was to discuss aftercare and discharge recommendations. Eye Contact:: Good Motor Activity:: Appropriate Appearance:: Casual Speech:: Appropriate Mood:: Euthymic, Anxious Affect:: Congruent Thoughts:: Linear, Logical, No evidence of hallucinations/delusions noted Staff Interventions:: Therapist used open-ended questions to explore client's thoughts on personal progress. Therapist reviewed strategies, warning signs, and coping skills with client to promote gains and prevent setbacks. Therapist discussed aftercare plan with client and used strengths-perspective to empower client on the goals client accomplished. Therapist helped client schedule an intake appointment with [facility] in [place]. Therapist gave client a quote collage for closure and had client complete the IOP surveys. Client Response:: Client responded well to session, open to meeting with therapist. Client shared she has recognized progress in herself from day one in IOP to discharge. Client shared she has improved her ability to manage anxiety through thought challenging, self-talk, and talking with supports. Client reported having a recent stressor that in the past would have made me go into a total breakdown, but I actually handled it and it felt good. Client stated she continues to have worries and stress about school, family, and relationships , but client reported belief she can manage those things better now. Client identified strategies to promote gains and emotional regulation. Client's strategies included: thought challenging by looking at the evidence, positive self-talk, avoiding avoidance behaviors, talking with supports, taking medication consistently, and problem-solving stressors. Client and therapist called [facility] to schedule an intake appointment for outpatient counseling. Risks/Concerns:: No risks or concerns to document at this time. Client denies suicidal ideation, plan, and intent as of 06/07/18. Client reports looking forward to school and shared she is excited about starting her new job which demonstrates future orientation. Progress Toward Goals/Plan:: Client made progress towards treatment goals as evidenced by her reduced DSM-5 cross-cutting measure score for anxiety and report of increased self-confidence. At discharge client reported reduced panic , depression, and increased ability to manage emotions. Client also improved functioning as evidenced by her report of getting a job and feeling confident to move back to school. Client to discharge from [facility] and follow up with [facility] in [place] for outpatient counseling. Client wanted to find a therapist close to [employer] as client attends school there. Client's intake appointment is 07/01/18. Time Stopped:: 13:15
== END 2018-06-11 23:59 ==
LOC: BHIOP 09:00
PROVIDERS: Family Provider Student in an Organized Health Care Education/Training Program; PCP Student in an Organized Health Care Education/Training Program; Visit Provider Psychiatry & Neurology Psychiatry
DX: F41.1 Generalized anxiety disorder (principal); F32.9 Major depressive disorder, single episode, unspecified; E55.9 Vitamin D deficiency, unspecified; M79.7 Fibromyalgia
CPT/HCPCS: H0035; 90832; 90834; 90853

== ENCOUNTER 2021-06-05 19:44 | Emergency (ER) | payer BC, SELFPAY ==
[2021-06-05 19:46] VITALS: BP 147/108; PULSE 114; RESP 18; TEMP 36.6; O2SAT 98; BMI 37.1
--- NOTE | 2021-06-05 21:39 | EX.ED.DYSGE1 ---
HPI History of Present Illness Chief Complaint: Anxiety Informant: patient Narrative Narrative: Patient arrives with 2 complaints today. Her first complaint is that she has a history of anxiety and has been waxing and waning anxiety/panic attack all day. She just feels anxious. She has trouble sitting still. She is not having chest pain or trouble breathing. She has had these before. She takes Flexeril on occasion for anxiety attack. She does know that this is a muscle relaxant. She is not suicidal or homicidal. Nothing really makes the symptoms better or worse. Patient also complains that she has had a mild sore throat and both of her ears are sore. This has been going on for 2 or 3 days. No cough or trouble breathing. No fevers or chills. No nasal congestion. [facility] Medical History Anxiety Depression Panic attacks Home Medications cholecalciferol (vitamin D3) [Vitamin D3] 2,000 unit PO DAILY 10/27/17 [History Last Taken Unknown] duloxetine 60 mg PO BREAKFAST 10/27/17 [History Last Taken Unknown] levonorgestrel [Mirena] 1 ea IY X1 10/27/17 [History Last Taken Unknown] lorazepam 0.5 mg PO DAILY PRN PRN 04/05/18 [History Last Taken Unknown] hydroxyzine pamoate [Vistaril] 25 mg PO TID PRN #14 cap 06/05/21 [Rx Last Taken Unknown] Allergy/AdvReac Type Severity Reaction Status Date / Time No Known Allergies Allergy Verified 06/05/21 19:47 Social History Smoking Status: Never smoker ROS ROS ED Constitutional Constitutional ED: Denies chills, fever(s) or sweats Eyes Eyes: Denies blurry vision ENT ENT ED: Reports ear pain and sore throat; Denies rhinorrhea Cardiovascular Cardiovascular: Denies chest pain or palpitations Respiratory/Chest Respiratory/Chest: Denies cough or dyspnea Gastrointestinal Gastrointestinal: Denies nausea or vomiting Genitourinary Genitourinary ED: Denies dysuria Musculoskeletal Musculoskeletal: Denies myalgias Integumentary Denies abscess or rash Neurologic Neurologic: Denies headache(s), paresthesias or weakness Psychiatric Psychiatric: Reports anxiety; Denies depression, suicidal ideation or suicidal thoughts Allergic/Immunologic Allergic/Immunologic ED: Denies urticaria EXAM Physical Exam Const Vital Signs: 06/05/21 19:46 Temperature 97.9 F Temperature Source Temporal Pulse Rate 114 H Respiratory Rate 18 Blood Pressure 147/108 H Blood Pressure Mean 121 Pulse Ox 98 Oxygen Delivery Method Room Air Positive well nourished and well developed General Appearance ED: well developed HEENT HEENT Narrative: Pharynx has minimal erythema. No exudate. Voice is normal. Handle secretions normally. Ears both show asked trace amount of fluid but they are clear not red and not infected. External canals are also normal. trauma Eyes PERRL Neck supple Chest Wall inspection of chest normal Resp normal respiratory effort and clear to auscultation bilaterally GI normal to inspection, nondistended, normoactive bowel sounds Back/Spine no CVA tenderness Neuro oriented x3 Sensorium / Orientation: alert Psych Psych Narrative: Patient does appear anxious. She is usually standing or pacing around the room. She is able to sit still for exam. Mood & Affect: anxious Skin no rashes or lesions noted MDM MDM MDM Narrative Medical decision making narrative: I will give the patient Ativan here. I will give her a few Vistaril. I think she also likely has a viral URI. She will follow up with her physicians. Discharge Plan Triage Chief Complaint: Anxiety ED Provider: Reilly Cisneros Dx/Rx/DC Orders Clinical Impression: URI (upper respiratory infection), Anxiety Instructions: ED Anxiety Reaction Prescriptions: New hydroxyzine pamoate [Vistaril] 25 mg capsule 25 mg PO TID PRN (Reason: anxiety) Qty: 14 RF: 0 No Action levonorgestrel [Mirena] 1 EACH intrauterine device 1 ea IY X1 RF: 0 duloxetine 30 MG capsule 60 mg PO BREAKFAST RF: 0 cholecalciferol (vitamin D3) [Vitamin D3] 2,000 UNIT capsule 2,000 unit PO DAILY RF: 0 lorazepam 0.5 MG tablet 0.5 mg PO DAILY PRN PRN (Reason: Anxiety) RF: 0 Primary Care Provider: Sadi Ortega Referrals: Sadi Ortega DO [Primary Care Provider] - 3-5 Days Disposition Disposition: Home, Self Care
[2021-06-05] MEDS: LORazepam 1 MG Tablet PO (21:55)
[2021-06-05 21:57] VITALS: BP 158/82
== END 2021-06-05 21:58 | disposition home or self-care (01) ==
PROVIDERS: Emergency Provider Emergency Medicine; PCP Student in an Organized Health Care Education/Training Program
DX: J06.9 Acute upper respiratory infection, unspecified (principal); F41.9 Anxiety disorder, unspecified
CPT/HCPCS: 99283